=== PATIENT | female | born 1955 | race Caucasian/White ===

== ENCOUNTER 2018-03-18 22:00 | Emergency (ER) | payer OTHER, SELFPAY ==
[2018-03-18 22:03] VITALS: BP 141/83; PULSE 81; RESP 16; TEMP 36.8; O2SAT 95; BMI 39.4
--- NOTE | 2018-03-18 22:41 | RAD_ITS ---
STUDY: X-RAY - LEFT ANKLE REASON FOR EXAM: Female, 62 years old. Status post fall. Pain and swelling of the medial aspect of the ankle. TECHNIQUE: 3 view(s) of the ankle. COMPARISON: None. FINDINGS: Normal visualized distal tibia and fibula. Normal medial and lateral malleoli. Normal tibiotalar articulation and ankle mortise. There is an enthesophyte formation in the posterior calcaneus near the insertion of the Achilles tendon. The visualized subtalar, talonavicular, calcaneocuboid and tarsal articulations are normal. There is no demonstrated fracture. There is soft tissue swelling. RAD/Ankle min 3 Views IMPRESSION: Soft tissue swelling. No demonstrated acute osseous injury. Electronically Signed: Francisco Wooten MD at 23:14 EDT Tel , Service support ,
[2018-03-18] MEDS: Ibuprofen 600 MG Tablet PO (22:53)
--- NOTE | 2018-03-18 23:24 | ED.DCSUM_ITS ---
- ER Visit Summary Date of Service: 03/18/18 Chief Complaint: Left ankle pain History of Present Illness: The patient is a 62 F whose had left ankle pain for the last 3 weeks with mild edema. Patient was seen by her PCP and given prednisone and anti-inflammatories. She did not have significant improvement. Tonight she jumped out of bed to answer the phone and felt a pop in her left ankle with increased pain and swelling. She is unsure if she rolled her ankle or not. She has not been able to bear weight on it since that time. Physical Examination: Vital signs unremarkable. Patient sitting upright in bed no acute distress. Lower extremity examination significant for edema the left ankle, medial greater than lateral. She does have tenderness over the medial ankle. She has strong distal pulses. There is no tenderness over the foot itself. There is no tenderness of the proximal fibula. Test Results: Left ankle x-rays reveal soft tissue swelling with no acute osseous injury. Emergency Department Course and Treatment: Patient was only have ibuprofen for pain. Air stirrup splint will be placed. Patient has walker and wheelchair at home that she can use as needed. Treatment Plan: [] Disposition: Discharge Impression: Left ankle sprain This note was generated with [employer] dictation software. It may contain incorrect words, spelling, and punctuation that were not noted in review of the chart prior to signing ED Disposition - Plan for ED Patient: Chief Complaint: Lower Extremity Injury Referrals: Jake Carter MD [Primary Care Provider] -
--- NOTE | 2018-03-18 23:24 | ED.DEP ---
ED Disposition - Plan for ED Patient: Disposition: Home or Assisted Living Chief Complaint: Lower Extremity Injury Instructions: ED Sprain Ankle W X Ray Referrals: Jake Carter MD [Primary Care Provider] - 1 Week if not improving
[2018-03-19 00:11] VITALS: RESP 18
== END 2018-03-19 00:11 | disposition home or self-care (01) ==
PROVIDERS: Emergency Provider Emergency Medicine; Family Provider Family Medicine; PCP Family Medicine
DX: S93.402A Sprain of unspecified ligament of left ankle, initial encounter (principal); X58.XXXA Exposure to other specified factors, initial encounter; Y93.9 Activity, unspecified; Y92.9 Unspecified place or not applicable; Y99.9 Unspecified external cause status; J45.909 Unspecified asthma, uncomplicated; K21.9 Gastro-esophageal reflux disease without esophagitis; Z79.899 Other long term (current) drug therapy
CPT/HCPCS: 73610; 99283

== ENCOUNTER 2018-06-17 09:30 | Outpatient (RCR) | payer OTHER, SELFPAY ==
--- NOTE | 2018-05-15 17:06 | HP.PTEVAL_ITS ---
Patient's Visit Information CARMEN CUENCA is a 62 year old F referred to Physical Therapy by Raji Herrera with a diagnosis of L ankle pain, pes planus, deltoid sprain, pot-tib dysfxn. Date of Evaluation: 05/15/18 Physical Therapist: Juju Garcia - Visit Plan Frequency: 2x /Week Duration: 4 Weeks Plan: Pt has a latex allergy. 2X/ weekf or 4 weeks for L ankle AROM,stretching, strengthening, gait tainin, balance, with HEP and modlaities PRN - Subjective Subjective: Pt reports that around March 21, 2018 she stepped over a pile of toys and had pain in her L foot and had heard a pop. She went to ER and they x- ray and put her in a boot. She was seeing Dr Carter and it was not getting any better with time or Prednizone. She was then sent to Dr Tesfaye and he said that she needed PT. She asked for an MRI but he wanted PT first. She has 7/10 pain in sitting and 9/10 pain with standing activities. She reports that the medial side of her foot is what hurts. She reports that the pain does wake her up at night when she moves around without the boot on. She reports that she gets some tingling in her toes att imes. She is frustrated as she does not feel it is any better. - Pain L foot pain Pain Intensity (Out of 10): 7 Pain Intensity Range: 9 Comment: with movment - Objective L ankle AROM: DF - 3 degrees from DF and 19 degrees PF, 10 degrees INV and 3 degrees EV. Palpation: pt is tender along the post tib tendon and at the insertion point on the L. Pt has increase pain moving her foot in all 4 planes of movement. Pt is not able to walk with a normal gait and she is not able to put full weight on her L foot when transfering from a chair to a mat table with out the boot. - Goals Goal 1:: I HEP Goal Time Frame: 4-6 Weeks Goal 2:: Increase L ankle AROM to 9 degrees DF and 30 degrees PF to increase ability to do ADL's Goal Time Frame: 4-6 Weeks Goal 3:: Be able to walk without the boot without pain Goal Time Frame: 6-8 Weeks - Rehabilitation Potential Rehabilitation Potential: Good - Anticipated Interventions Patient/Client Instruction: Educate patient on: Condition, Plan of Care For the Purpose of:: To decrease pain, To decrease swelling/inflammation, To increase ROM, To improve nutrient delivery to tissue, To improve muscle performance and motor function, To improve ability to perform ADL's, To increase tolerance to activity/condition/position, To improve performance and indep endence with ADL's, To improve ability of physical actions for home/community/work/leisure, To improve gait and locomotor functions, To improve health of tissue, To decrease soft tissue restriction, To increase flexibility/ROM, To improve balance Therapeutic Exercise to Include: Strength training, Balance training, Flexibilty training, Gait and locomotor training, Passive ROM, Active ROM For the Purpose of:: To decrease pain, To decrease swelling/inflammation, To increase ROM, To improve nutrient delivery to tissue, To improve muscle performance and motor function, To improve ability to perform ADL's, To increase tolerance to activity/condition/position, To improve performance and independence with ADL's, To improve ability of physical actions for home/community/work/leisure, To improve gait and locomotor functions, To improve health of tissue, To improve balance Manual Therapy Techniques to Include: Passive ROM, Soft tissue mobilization For the Purpose of:: To decrease pain, To decrease swelling/inflammation, To increase ROM, To improve nutrient delivery to tissue, To improve ability to perform ADL's, To increase tolerance to activity/condition/position IF ES: Yes Cryotherapy (ice pack, ice massage): Yes Thermo therapy (hot pack): Yes Ultrasound (thermal/non thermal): Yes For the Purpose of:: To decrease pain, To decrease swelling/inflammation, To increase ROM, To improve nutrient delivery to tissue, To improve muscle performance and motor function, To improve health of tissue Thank you for the opportunity to evaluate your patient. For Medicare and Medicare HMO plans, please review the plan of care and approve it. It will need to be FAXED BACK to us at [phone] for Medicare purposes. Please let me know if there are questions or concerns regarding this plan of care. Physician Signature: Date:
--- NOTE | 2018-06-17 10:04 | HP.PTDCSUM ---
HP - PT D/C Summary It has been my pleasure to treat CARMEN CUENCA under orders from Raji Herrera, for the diagnosis of L ankle pain, pes planus, deltoid sprain, pot-tib dysfxn for a total of 7 visit(s). Discharge Date: 06/17/18 Please see the following information for a summary of their discharge status. - Subjective Subjective: Pt reports that PT is not working and that her foot is cramping up so much all the time. She is still walking with a limp. Her L foot is keeping her up at night with the cramping which is not new. Cramping starts on the fron t of the rios and then grabbing at the back of her heel and all around the ankle. They have never done an MRI. She went shopping the other day and she was grabbing onto things in the store it hurt so bad. Pt will call Dr Tesfaye to get back in and ask again for an MRI, - Pain L foot pain Pain Intensity (Out of 10): 6 - Overall Improvement % Improvement: 0 - Objective Objective/Function: L Ankle AROM: 5 degrees DF 38 degrees PF. Gait: walks with decreased stance time on the L. - Goals Goal 1:: I HEP Goal Progress: Goal Met Goal 2:: Increase L ankle AROM to 9 degrees DF and 30 degrees PF to increase ability to do ADL's Goal Progress: Progressing Goal 3:: Be able to walk without the boot without pain Goal Progress: Not Progressing - Plan Plan: DC PT back to physician. Possible MRI - D/C Information Discharge Comments: DC PT to HEP If there are questions or concerns regarding this patient's physical therapy, please feel free to call me at [phone]. Thank you for the referral of this patient. Sincerely, Juju Garcia
== END 2018-06-17 19:00 | disposition home or self-care (01) ==
LOC: PT 09:30
PROVIDERS: Family Provider Family Medicine; PCP Family Medicine; Referring Provider Family Medicine; Visit Provider Family Medicine
DX: M25.572 Pain in left ankle and joints of left foot (principal); M21.42 Flat foot [pes planus] (acquired), left foot; S93.422D Sprain of deltoid ligament of left ankle, subsequent encounter
CPT/HCPCS: 97035; 97110; 97161; 97530

== ENCOUNTER → 2018-06-28 09:31 | Outpatient (CLI) | payer OTHER, SELFPAY ==
--- NOTE | 2018-06-28 10:00 | MRI_ITS ---
STUDY: MRI LEFT ANKLE WITHOUT CONTRAST REASON FOR EXAM: Female, 62 years old. Medial left ankle pain after injury in March 2018. TECHNIQUE: Standardized fat and water weighted pulse sequences were obtained in all 3 orthogonal planes. COMPARISON: Radiograph's of the left ankle dated March 18, 2018. FINDINGS: Normal subcutis adipose space. There is posterior tibialis tendinosis with tenosynovitis. There is a type II accessory navicular (os tibiale externum) (axial series 3 images 12-24). Normal flexor digitorum longus tendon. Normal flexor hallucis longus tendon. Normal peroneus longus and brevis tendons. Normal tibialis anterior tendon. Normal extensor hallucis longus tendon. Normal extensor digitorum longus tendons. Normal Achilles tendon and teno-osseous insertion. Normal plantar fascia. Normal plantar calcaneal tubercles. Normal intrinsic muscles of the rearfoot. Normal distal tibiofibular syndesmotic ligamentous complex. Normal lateral ligamentous complex. Normal subtalar ligaments and sinus tarsi. Normal deltoid ligamentous complexes. Normal plantar calcaneonavicular (spring) ligament. There is mild arthrosis of the tibiotalar joint (sagittal series 7 images 8-13). There is moderate to severe arthrosis of the subtalar joint with substantial bone marrow edema in the talus (sagittal series 7 images 9-15). There is severe arthrosis of the calcaneocuboid joint with reactive subchondral bone marrow edema and subchondral cyst formation (sagittal series 7 images 11-18). 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 Electronically Signed: Renny Marcus MD at 16:36 EST , Service support ,
== END ==
PROVIDERS: Family Provider Family Medicine; PCP Family Medicine; Referring Provider Family Medicine; Visit Provider Family Medicine
DX: M76.822 Posterior tibial tendinitis, left leg (principal)
CPT/HCPCS: 73721

== ENCOUNTER → 2019-02-18 13:16 | Outpatient (CLI) | payer MEDICARE, SELFPAY ==
[2019-02-18 15:36] LABS: T4 Free Direct 1.09 ng/dL (0.76-1.46); Thyroid Stim Hormone (TSH) 0.77 uIU/mL (0.358-3.74)
== END ==
PROVIDERS: Family Provider Family Medicine; PCP Family Medicine; Referring Provider Family Medicine; Visit Provider Family Medicine
DX: E03.9 Hypothyroidism, unspecified (principal)
CPT/HCPCS: 36415; 84439; 84443

== ENCOUNTER → 2019-03-26 06:41 | Outpatient (CLI) | payer MEDICARE, SELFPAY ==
[2019-03-26 07:29] LABS: Absolute Lymphocyte Count 1.27 X10^3/uL (0.83-4.51); Absolute Neutrophil Count 4.6 X10^3/uL (2.0-7.7); Basophil# 0.05 X10^3/uL; Basophil% 0.7 % (0-1); Eosinophil# 0.34 X10^3/uL; Eosinophils% 4.9 % (0-5); Hematocrit 47.1 % (37-47); Lymphocyte # 1.27 X10^3/ul (4.0); Lymphocyte % 18.4 % (19-41); Mean Corp Hgb Conc 31.8 g/dL (32-36); Mean Corpuscular Hgb 26.2 pg (27.0-32.0); Mean Corpuscular Volume 82.2 fL (81-99); Mean Platelet Vol. 10.9 fl (6.2-12.0); Monocyte# 0.61 X10^3/uL; Monocyte% 8.8 % (0-10); NRBC Flagged by Analyzer 0 % (0-5); Neutrophil # 4.59 X10^3/uL (2.7-7.7); Neutrophil % 66.6 % (47-70); Platelet Count 212 K/mm3 (150-450); RBC Distribution Width CV 13.8 % (11.6-14.6); RBC Distribution Width SD 40.8 fl (35.1-43.9); Red Blood Count 5.73 M/mm3 (4.2-5.4); White Blood Count 6.9 K/mm3 (4.4-11.0)
[2019-03-26 08:16] LABS: ALB/GLOB Ratio 0.9 RATIO (0.9-2.4); AST(SGOT) 20 U/L (15-37); Alanine Aminotransfer ALT/SGPT 24 U/L (13-56); Albumin, Serum 3.5 g/dL (3.2-5.0); Alkaline Phosphatase 95 U/L (45-117); Anion Gap 9 (5-15); BUN 18 mg/dL (7-18); BUN/Creat Ratio 18.3 RATIO (10-20); Calcium,Total 8.6 mg/dL (8.5-10.1); Chloride 107 mmol/L (98-107); Cholesterol 160 mg/dL (200); Creatinine, Serum 0.98 mg/dL (0.55-1.02); EST Glomerular Filtration Rate 60 mL/min (>60); Est Glom Filt Rate - Afr Amer 73 mL/min (>60); Globulin 3.7 g/dL (2.2-4.2); Glucose 91 mg/dL (74-106); High Density Lipoprotein 44 mg/dL; Potassium 4.2 mmol/L (3.5-5.1); Protein, Total 7.2 g/dL (6.4-8.2); Sodium Level 142 mmol/L (136-145); Thyroid Stim Hormone (TSH) 0.33 uIU/mL (0.358-3.74); Triglycerides 140 mg/dL; Very Low Density Lipoprotein 28 mg/dL (5-40)
--- NOTE | 2019-03-27 15:46 | STRESSREP_ITS ---
Stress Test Report Date: March 26, 2019 Procedure: Pharmacologic stress nuclear imaging study Indications: [Abnormal EKG] Consent: Per the patient Procedure: The patient underwent pharmacologic (Regadenoson) evaluation with a peak heart rate of 88 beats per minute (56 %predicted maximal heart rate) and a peak blood pressure of 150/90 mmHg. The baseline ECG demonstrated normal sinus rhythm, poor R wave progression in the anterior leads. EKG during lexiscan infusion revealed no significant change from baseline. EKG post infusion revealed no significant change from baseline [There were no cardiac dysrhythmias pretest, during pharmacologic infusion, or recovery]. [There was no complaint of chest discomfort during pharmacologic infusion or recovery]. The examination was discontinued secondary to completion of protocol. Impression: 1. Lexiscan stress test test is negative for Lexiscan infusion induced EKG changes of ischemia. 2. Lexiscan stress test test is negative for Lexiscan infusion induced chest pain. 3. Results of the nuclear portion of the test is as below Myocardial perfusion imaging study: Technique: The patient was injected with 14.4 millicuries of technetium 99m Cardiolite and subsequently rest SPECT Cardiolite nuclear imaging was obtained in the horizontal long, vertical long, and short axis views. The patient underwent pharmacologic (Regadenoson) evaluation. Please see above for details. The patient was injected with 44.7 millicuries of technetium 99m Cardiolite and subsequently stress SPECT Cardiolite nuclear imaging was obtained in the horizontal long, vertical long, and short axis views. A gated Cardiolite study at peak stress was obtained. Interpretation: Rest and stress SPECT Cardiolite nuclear imaging status post realignment, normalization, and attenuation correction demonstrate mild to moderately decreased radioisotope uptake in the apex on both the rest and stress images. Gated images reveal mild apical hypokinesis. The reported LVEF is [62]%. These findings are suggestive of prior apical myocardial infarction. There is no evidence of significant ischemia Impression: 1. There is no evidence of significant ischemia. Possible prior apical myocardial infarction 2. Estimated ejection fraction is 62%. This note was generated with [employer] software. It may contain incorrect words, spelling, and punctuation that were not noted in checking the note before signing.
== END ==
PROVIDERS: Family Provider Family Medicine; PCP Family Medicine; Referring Provider Family Medicine; Visit Provider Family Medicine
DX: Z00.00 Encounter for general adult medical examination without abnormal findings (principal); K52.81 Eosinophilic gastritis or gastroenteritis; R94.31 Abnormal electrocardiogram [ECG] [EKG]
CPT/HCPCS: 36415; 78452; 80053; 80061; 84443; 85025; 93017; A9500; A4216; J2785

== ENCOUNTER → 2019-08-25 11:10 | Outpatient (CLI) | payer MEDICARE, SELFPAY ==
[2019-08-25 13:01] LABS: Absolute Lymphocyte Count 1.21 X10^3/uL (0.83-4.51); Absolute Neutrophil Count 5.6 X10^3/uL (2.0-7.7); Basophil# 0.07 X10^3/uL; Basophil% 0.9 % (0-1); Eosinophil# 0.44 X10^3/uL; Eosinophils% 5.5 % (0-5); Hematocrit 47.6 % (37-47); Hemoglobin 14.6 g/dL (12.0-15.0); Lymphocyte # 1.21 X10^3/ul (4.0); Lymphocyte % 15.1 % (19-41); Mean Corp Hgb Conc 30.7 g/dL (32-36); Mean Corpuscular Hgb 25.3 pg (27.0-32.0); Mean Corpuscular Volume 82.6 fL (81-99); Mean Platelet Vol. 11.1 fl (6.2-12.0); Monocyte# 0.61 X10^3/uL; Monocyte% 7.6 % (0-10); NRBC Flagged by Analyzer 0 % (0-5); Neutrophil # 5.62 X10^3/uL (2.7-7.7); Neutrophil % 70.3 % (47-70); Platelet Count 242 K/mm3 (150-450); RBC Distribution Width CV 14.1 % (11.6-14.6); RBC Distribution Width SD 42.2 fl (35.1-43.9); Red Blood Count 5.76 M/mm3 (4.2-5.4)
[2019-08-25 13:23] LABS: Vitamin D,25 Hydroxy 19.2 ng/mL (29.95-100.01)
[2019-08-25 13:38] LABS: AST(SGOT) 25 U/L (15-37); Alanine Aminotransfer ALT/SGPT 31 U/L (13-56); Albumin, Serum 3.8 g/dL (3.2-5.0); Alkaline Phosphatase 99 U/L (45-117); Anion Gap 7 (5-15); BUN 18 mg/dL (7-18); BUN/Creat Ratio 19.1 RATIO (10-20); Chloride 105 mmol/L (98-107); Cholesterol 197 mg/dL (200); Creatinine, Serum 0.94 mg/dL (0.55-1.02); EST Glomerular Filtration Rate 63 mL/min (>60); Est Glom Filt Rate - Afr Amer 77 mL/min (>60); Ferritin 133 ng/mL (8-252); Globulin 3.7 g/dL (2.2-4.2); Glucose 75 mg/dL (74-106); High Density Lipoprotein 59 mg/dL; Magnesium 2.2 mg/dL (1.6-2.6); Potassium 4.3 mmol/L (3.5-5.1); Protein, Total 7.5 g/dL (6.4-8.2); Sodium Level 139 mmol/L (136-145); Thyroid Stim Hormone (TSH) 0.36 uIU/mL (0.358-3.74); Triglycerides 84 mg/dL; Very Low Density Lipoprotein 17 mg/dL (5-40)
[2019-08-25 14:42] LABS: Microalbumin,Random Urine 6.4 mg/L (NO RANGE EST.); Microalbumin:Creatinine Ratio 6.8 mg/g CRE (<30 mg/g CRE)
== END ==
PROVIDERS: Family Provider Family Medicine; PCP Family Medicine; Referring Provider Family Medicine; Visit Provider Family Medicine
DX: I10 Essential (primary) hypertension (principal); E03.9 Hypothyroidism, unspecified; E88.81 Metabolic syndrome and other insulin resistance; G47.62 Sleep related leg cramps; E55.9 Vitamin D deficiency, unspecified
CPT/HCPCS: 36415; 80053; 80061; 82043; 82306; 82570; 82728; 83735; 84443; 85025

== ENCOUNTER → 2020-03-18 08:41 | Outpatient (CLI) | payer MEDICARE, SELFPAY ==
--- NOTE | 2020-03-18 08:42 | RAD_ITS ---
STUDY: X-RAY - ESOPHAGUS (BARIUM SWALLOW) WITH FLUOROSCOPY REASON FOR EXAM: Female, 64 years old. CHOKING X YEARS ON BOTH FOODS AND LIQUIDS, COLDER THE SUBSTANCE THE WORSE, PREV DILATATION TECHNIQUE: 13 view(s) of the esophagus were obtained following swallowing of barium. FLUOROSCOPY TIME (if supplied): (0:35) minutes/seconds COMPARISON: None. FINDINGS: There is no demonstrated esophageal foreign body. There is no demonstrated stricture or mucosal abnormality. Mild circumferential narrowing of the distal esophagus at the gastroesophageal junction. The patient ingested a 12 mm tablet of barium. The tablet is trapped at the gastroesophageal junction. There is atherosclerotic tortuosity of the aortic arch and descending thoracic aorta. Normal visualized pulmonary parenchyma. Normal visualized osseous structures of the thorax. RAD/Esophagus Dual Contrast IMPRESSION: Circumferential narrowing of the distal esophagus at the gastroesophageal junction. The 12 mm tablet of barium is trapped at the gastroesophageal junction. Electronically Signed: Natalio Edouard, at 10:51 EDT , Service support ,
== END ==
PROVIDERS: PCP Family Medicine; Referring Provider Internal Medicine Gastroenterology; Visit Provider Internal Medicine Gastroenterology
DX: R13.10 Dysphagia, unspecified (principal)
CPT/HCPCS: 74221

== ENCOUNTER → 2020-03-31 10:17 | Outpatient (CLI) | payer MEDICARE, SELFPAY | PROVIDERS: PCP Family Medicine; Referring Provider Internal Medicine Gastroenterology; Visit Provider Internal Medicine Gastroenterology | DX: Z11.59 Encounter for screening for other viral diseases (principal) | CPT/HCPCS: 87635; 94799; C9803; U0003 ==

== ENCOUNTER → 2020-04-06 15:34 | Outpatient (CLI) | payer MEDICARE, SELFPAY ==
--- NOTE | 2020-04-06 15:36 | BI_ITS ---
MAMMOGRAPHY - BILATERAL SCREENING REASON FOR EXAM: Female, 64 years old. Routine annual screening examination. PERTINENT HISTORY: Non-contributory. TECHNIQUE: Digital bilateral breast rosita (3D mammographic acquisition) in the CC and MLO projections. 2-D mediolateral oblique (MLO) and craniocaudad (CC) views of both breasts were obtained. CAD: Full Field Digital Mammography with Computer Added Detection was performed. COMPARISON: Comparison is made with prior study dated 05/18/2016 and 12/25/2014. FINDINGS: Breast Composition: There are scattered areas of fibroglandular density. There are no dominant masses or suspicious calcifications. Stable small benign-appearing bilateral axillary lymph nodes. No other significant abnormalities are identified. There has been no significant change since the prior study. BI/SCREEN MAMM (CAD) W/ROSITA BILAT IMPRESSION: Stable bilateral screening mammogram. Yearly follow-up mammogram recommended. (A) ASSESSMENT CATEGORY: BIRADS Category 1: Negative. A letter regarding these results will be sent to the patient by the facility within 30 days. Approximately 10% of breast cancers are not detected by mammography. A normal mammogram should not delay biopsy of a clinically suspicious abnormality. [id number] Electronically Signed: Natalio Edouard, at 8:17 EDT , Service support ,
--- NOTE | 2020-04-06 15:42 | BD_ITS ---
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 COMPARISON: None. FINDINGS: Lumbar Spine (L1-L4): g/cm2 (1.102) / T-score (-0.6) / Z-score (1.0) Findings are suggestive of normal bone density with a low fracture risk. Left Femur Total: g/cm2 (0.806) / T-score (-1.6) / Z-score (-0.3) Left Femoral Neck: g/cm2 (0.687) / T-score (-2.5) / Z-score (-1.0) Right Femur Total: g/cm2 (0.960) / T-score (-0.4) / Z-score (0.9) Right Femoral Neck: g/cm2 (0.741) / T-score (-2.1) / Z-score (-0.6) Right Forearm: g/cm2 ( ) / T-score ( ) / Z-score ( ) Left Forearm: g/cm2 ( ) / T-score ( ) / Z-score ( ) BD/Dexa Bone Density Study IMPRESSION: The patient is considered osteopenic as outlined below according to World Josh Organization (WHO) criteria with a high fracture risk. Reference Information: The T-score is the number of standard deviations above or below the standard which is normal for young adults at their peak bone mineral density. The World Health Organization (WHO) interprets the T-scores as follows: Above -1 Normal bone density Between -1 and -2.5 Osteopenia Equal to / or below -2.5 Osteoporosis As a practical clinical guideline, osteopenia may be graded as follows: Mild -1 through -1.5 Moderate -1.6 through -2.0 Severe -2.1 through -2.4 The Z-score is the number of standard deviations above or below age-matched controls. A Z-score of less than -1.5 would be considered abnormal. References: 1. NIH Osteoporosis and Related Bone Diseases http://www.osteo.org 2. International Society for Clinical Densitometry http://www.iscd.org 3. National Osteoporosis Foundation http://www.nof.org Electronically Signed: Natalio Edouard, at 13:09 EDT , Service support ,
== END ==
PROVIDERS: PCP Family Medicine; Referring Provider Family Medicine; Visit Provider Family Medicine
DX: Z12.31 Encounter for screening mammogram for malignant neoplasm of breast (principal); M85.80 Other specified disorders of bone density and structure, unspecified site; Z78.0 Asymptomatic menopausal state
CPT/HCPCS: 77063; 77067; 77080

== ENCOUNTER → 2020-08-18 15:21 | Outpatient (CLI) | payer MEDICARE, SELFPAY ==
--- NOTE | 2020-08-18 15:26 | RAD_ITS ---
STUDY: X-RAY CHEST REASON FOR EXAM: Female, 64 years old. sob off and on, getting worse TECHNIQUE: Frontal and lateral views COMPARISON: 11/11/2010 FINDINGS: The lungs are clear and expanded. There is no demonstrated pleural abnormality. Normal size heart. Normal mediastinum and nubia. Normal visualized pulmonary arteries. Normal visualized aortic arch and descending thoracic aorta. Normal visualized thoracic spine. Normal visualized ribs, clavicles, and shoulders. There is no demonstrated abnormality of the visualized soft tissue structures of the upper abdomen. RAD/Chest PA and Lateral IMPRESSION: Normal x-ray examination of the chest. Electronically Signed: Jordan Best DO at 16:04 EST Tel [phone], Service support ,
[2020-08-18 17:49] LABS: Absolute Lymphocyte Count 1.17 X10^3/uL (0.83-4.51); Absolute Neutrophil Count 4.7 X10^3/uL (2.0-7.7); Basophil# 0.05 X10^3/uL; Basophil% 0.7 % (0-1); Eosinophil# 0.45 X10^3/uL; Eosinophils% 6.5 % (0-5); Hematocrit 49.2 % (37-47); Hemoglobin 14.8 g/dL (12.0-15.0); Lymphocyte # 1.17 X10^3/ul (4.0); Lymphocyte % 16.8 % (19-41); Mean Corp Hgb Conc 30.1 g/dL (32-36); Mean Corpuscular Hgb 24.7 pg (27.0-32.0); Mean Corpuscular Volume 82.3 fL (81-99); Mean Platelet Vol. 11.3 fl (6.2-12.0); Monocyte# 0.58 X10^3/uL; Monocyte% 8.3 % (0-10); NRBC Flagged by Analyzer 0 % (0-5); Neutrophil # 4.68 X10^3/uL (2.7-7.7); Neutrophil % 67.3 % (47-70); Platelet Count 274 K/mm3 (150-450); RBC Distribution Width CV 13.5 % (11.6-14.6); RBC Distribution Width SD 40.5 fl (35.1-43.9); Red Blood Count 5.98 M/mm3 (4.2-5.4)
[2020-08-18 18:03] LABS: Vitamin D,25 Hydroxy 15.5 ng/mL
[2020-08-18 18:44] LABS: AST(SGOT) 50 U/L (15-37); Alanine Aminotransfer ALT/SGPT 64 U/L (13-56); Albumin, Serum 3.8 g/dL (3.2-5.0); Alkaline Phosphatase 111 U/L (45-117); Anion Gap 7 (5-15); BUN 17 mg/dL (7-18); BUN/Creat Ratio 16.7 RATIO (10-20); CRP, High Sensitivity Cardiac 7.33 mg/L; Calcium,Total 9.2 mg/dL (8.5-10.1); Chloride 102 mmol/L (98-107); Creatinine, Serum 1.02 mg/dL (0.55-1.02); EST Glomerular Filtration Rate 58 mL/min (>60); Est Glom Filt Rate - Afr Amer 70 mL/min (>60); Globulin 3.9 g/dL (2.2-4.2); Glucose 89 mg/dL (74-106); Magnesium 2.3 mg/dL (1.6-2.6); Potassium 3.8 mmol/L (3.5-5.1); Prolactin 5.5 ng/mL; Protein, Total 7.7 g/dL (6.4-8.2); Sodium Level 138 mmol/L (136-145); Thyroid Stim Hormone (TSH) 0.12 uIU/mL (0.358-3.74)
[2020-08-18 18:54] LABS: BNP,B-Type NATRIURETIC PEPTIDE 17.2 pg/mL (0-100)
[2020-08-19 09:12] LABS: PTHIN 48.1 pg/mL (18.4-80.1)
[2020-08-23 14:09] LABS: PROEL- A/G Ratio 1.1 (0.7-1.7); PROEL- Albumin 3.6 g/dL (2.9-4.4); PROEL- Alpha-1 Globulin 0.3 g/dL (0.0-0.4); PROEL- Alpha-2 Globulin 0.8 g/dL (0.4-1.0); PROEL- Beta Globulin 1.1 g/dL (0.7-1.3); PROEL- Gamma Globulin 1.1 g/dL (0.4-1.8); PROEL- Globulin, Total 3.3 g/dL (2.2-3.9); PROEL- TOTAL PROTEIN 6.9 g/dL (6.0-8.5); PROELU- Albumin, Urine 26.7 % (.); PROELU- Alpha-1-Globulin,Ur 1.8 % (.); PROELU- Alpha-2-Globulin,Ur 18.5 % (.); PROELU- Beta Globulin, Ur 29.8 % (.); PROELU- Gamma Globulin, Ur 23.2 % (.); Total Protein, Ur 6.4 mg/dL (Not Estab.)
== END ==
LOC: MTLAB 15:24 → MTRAD 15:25
PROVIDERS: PCP Family Medicine; Referring Provider Family Medicine; Visit Provider Family Medicine
DX: R06.02 Shortness of breath (principal); E88.81 Metabolic syndrome and other insulin resistance; E55.9 Vitamin D deficiency, unspecified; M81.0 Age-related osteoporosis without current pathological fracture; E03.9 Hypothyroidism, unspecified; J32.9 Chronic sinusitis, unspecified; H53.2 Diplopia
CPT/HCPCS: 36415; 71046; 80053; 82306; 83735; 83880; 83970; 84146; 84165; 84166; 84443; 85025; 86141

== ENCOUNTER → 2020-08-19 13:09 | Outpatient (CLI) | payer MEDICARE, SELFPAY ==
[2020-08-19] MEDS: 0.9% NaCl Peripheral Flush Adult/Peds IV (13:34)
[2020-08-19] MEDS: 0.9% NaCl IVPB Med Flush (250 mL) 15 ML IV (13:34)
[2020-08-19] MEDS: Zoledronic Acid 5 MG 100 ML 300 MG IV (13:36)
[2020-08-19 13:40] VITALS: BP 156/81; PULSE 79; RESP 16; TEMP 36.8; O2SAT 97; BMI 38.5
[2020-08-19 14:11] VITALS: BP 148/67
[2020-08-19 18:29] LABS: Erythrocyte Sedimentation Rate 18 mm/hr (0-30)
== END ==
PROVIDERS: Ophthalmology; PCP Family Medicine; Referring Provider Family Medicine; Visit Provider Family Medicine
DX: M81.0 Age-related osteoporosis without current pathological fracture (principal); R51.9 Headache, unspecified
CPT/HCPCS: 96365; 36415; 85652; J7050; A4216; J3489

== ENCOUNTER → 2020-09-07 09:15 | Outpatient (CLI) | payer MEDICARE, SELFPAY ==
[2020-09-06 09:40] VITALS: BMI 40.0
--- NOTE | 2020-09-08 09:13 | PFT ---
INTRODUCTION: The patient is a 64-year-old female that presents for pulmonary function studies secondary to a diagnosis of shortness of breath. Respiratory therapy reports good patient effort. Bronchodilators were used during testing. INTERPRETATION: Forced expiration spirometry demonstrates no evidence of a large airways obstructive ventilatory defect. There was no significant response to aerosolized bronchodilators. Spirograms are of good quality and plateau normally. The respiratory flow volume loop appears normal. Body plethysmography was performed and reveals lung volumes to be within normal limits. Diffusing capacity by single breath CO is reduced at 69% of predicted. When compared to previous pulmonary function studies from 2017, there has been a 14% reduction in DLCO. IMPRESSION: Isolated reduction in diffusing capacity with interval worsening since 2017.
== END ==
PROVIDERS: PCP Family Medicine; Referring Provider Internal Medicine Critical Care Medicine; Visit Provider Internal Medicine Critical Care Medicine
DX: R06.02 Shortness of breath (principal)
CPT/HCPCS: 94060; 94726; 94729

== ENCOUNTER → 2020-09-09 07:18 | Outpatient (CLI) | payer MEDICARE, SELFPAY ==
[2020-09-06 09:40] VITALS: BMI 40.0
--- NOTE | 2020-09-09 07:22 | ECHOCS_ITS ---
Reason For Study: SOB Procedure This was a 2D Doppler, Color Flow transthoracic echocardiogram. The study was technically difficult. Exam performed in department. Left Ventricle Normal LV size. The estimated ejection fraction is 55 %. No evidence for diastolic dysfunction. No regional wall motion abnormalities noted. Right Ventricle Normal RV size. Normal systolic function. Atria Normal left atrium. Normal right atrium. No doppler evidence for ASD. Mitral Valve There is no mitral valve stenosis. No mitral valve insufficiency. Tricuspid Valve There is no tricuspid stenosis. No tricuspid valve insufficiency. Unable to estimate RV systolic pressure due to inadequate jet, pulmonary artery pressure probably normal. Aortic Valve Trisinus/trileaflet aortic valve. There is no aortic stenosis. Trivial aortic valve insufficiency. Pulmonic Valve There is no pulmonic valvular stenosis. No pulmonic valve insufficiency. Great Vessels Normal aortic root. Pericardium/Pleural No pericardial effusion. Medication Diluted definity 1ml given slow IV push to enhance endocardial definition. MMode/2D Measurements & Calculations LVIDd: 4.5 cm IVSd: 1.2 cm Ao root diam: 3.2 cm LVIDs: 3.0 cm LVPWd: 0.89 cm RVDd: 2.5 cm FS: 32.2 % LAV(MOD-bp): 29.2 ml LA A4 area: 12.9 cm2 LA dimension(2D): 4.3 cm LAV(MOD-bp) Indexed: 13.7 ml/m2 LAV(MOD-sp2): 29.3 ml LAV(MOD-sp4): 28.7 ml RA A4 area: 9.8 cm2 Doppler Measurements & Calculations MV E max sotero: 45.0 cm/sec Lat Peak E' Sotero: 5.5 cm/sec Med Peak E' Sotero: 4.1 cm/sec MV A max sotero: 82.4 cm/sec E/E' lat: 8.2 E/E' med: 11.0 MV E/A: 0.55 Ao V2 max: 142.5 cm/sec AI max sotero: 428.8 cm/sec LV V1 max: 104.3 cm/sec Ao max P.1 mmHg AI max P.6 mmHg LV V1 max P.4 mmHg AI dec slope: 254.1 cm/sec2 AI P1/2t: 494.3 msec PA V2 max: 117.5 cm/sec Interpretation Summary The estimated ejection fraction is 55 %. No evidence for diastolic dysfunction. Trivial aortic valve insufficiency. The study was technically difficult. Contrast injection was performed. Ordering Physician: Yonatan Solano Referring Physician: Jake Carter MD Performed By: Nayely Cox RDCS
[2020-09-09 10:30] VITALS: PULSE 101; PULSE 103; PULSE 104; PULSE 106; PULSE 107; PULSE 110; PULSE 84; PULSE 98; O2SAT 96; O2SAT 97; O2SAT 98; O2SAT 99
--- NOTE | 2020-09-09 12:46 | PCM.PSN.6M ---
PSN 6 Minute Walk Test - 6 Minute Walk Test 6 Minute Walk Test: 6 Minute Walk Test PSN:6-Minute Walk Test Start: 09/09/20 10:53 Freq: Status: Active Protocol: RESP.6MINW Document 09/09/20 10:30 HJ (Rec: 09/09/20 10:56 [id number]) 6 Minute Walk Test Date Performed 09/09/20 Time Performed 10:30 Height 5 ft 4 in Weight: 239 lb Weight in Pounds 239.[address]: Dr. Carter FIO2 (% Oxygen) 21 Assistive device used: None Pre-test Oxygen Delivery Method Room Air Pulse Ox (%) 98 Pulse Rate (60-100 beats/min) 84 Dyspnea Fernando Scale (0-10) 0 Exertion Fernando Scale (6-20) 6 1st minute Oxygen Delivery Method Room Air Pulse Ox (%) 97 Pulse Rate (60-100 beats/min) 103 H 2nd minute Oxygen Delivery Method Room Air Pulse Ox (%) 96 Pulse Rate (60-100 beats/min) 107 H 3rd minute Oxygen Delivery Method Room Air Pulse Ox (%) 97 Pulse Rate (60-100 beats/min) 106 H 4th minute Oxygen Delivery Method Room Air Pulse Ox (%) 98 Pulse Rate (60-100 beats/min) 101 H 5th minute Oxygen Delivery Method Room Air Pulse Ox (%) 97 Pulse Rate (60-100 beats/min) 110 H 6th minute Oxygen Delivery Method Room Air Pulse Ox (%) 99 Pulse Rate (60-100 beats/min) 104 H Post-test Oxygen Delivery Method Room Air Pulse Ox (%) 98 Pulse Rate (60-100 beats/min) 98 Dyspnea Fernando Scale (0-10) 3 Exertion Fernando Scale (6-20) 13 Full Laps Walked 17 Partial Lap, Number of Tiles Walked 0 Total Distance Walked (ft) 1003 - Interpretation Interpretation: The patient ambulated 1003 feet over the course of 6 minutes beginning on room air without assistive devices or breaks. Pretesting oxygen saturation was noted to be 98% on room air. With ambulation, the padma oxygen saturation was 96%. There was no significant exertional oxygen desaturation. - Recommendations Recommendations: There is no indication for the use of supplemental oxygen at this time.
--- NOTE | 2020-09-10 17:53 | STRESSREP_ITS ---
Stress Test Report Date: 09/09/2020 Procedure: Pharmacologic stress nuclear imaging study Indications: Shortness of breath Consent: Per the patient Procedure: The patient underwent pharmacologic (Regadenoson) evaluation with a peak heart rate of 106 beats per minute (68% predicted maximal heart rate) and a peak blood pressure of 138/90 mmHg. The baseline ECG demonstrated normal sinus rhythm. EKG during lexiscan infusion revealed no significant ischemic changes. EKG post infusion revealed [no significant ischemic changes] [There were no cardiac dysrhythmias pretest, during pharmacologic infusion, or recovery]. [There was no complaint of chest discomfort during pharmacologic infusion or recovery]. The examination was discontinued secondary to completion of protocol. Impression: 1. Lexiscan stress test test is negative for Lexiscan infusion induced EKG changes of ischemia. 2. Lexiscan stress test test is negative for Lexiscan infusion induced chest pain. 3. Results of the nuclear portion of the test is as below Myocardial perfusion imaging study: Technique: The patient was injected with [] millicuries of technetium 99m Cardiolite and subsequently rest SPECT Cardiolite nuclear imaging was obtained in the horizontal long, vertical long, and short axis views. The patient underwent pharmacologic [Regadenoson 0.4mg] evaluation. Please see above for details. The patient was injected with [] millicuries of technetium 99m Cardiolite and subsequently stress SPECT Cardiolite nuclear imaging was obtained in the hor izontal long, vertical long, and short axis views. A gated Cardiolite study at peak stress was obtained. Interpretation: Rest and stress SPECT Cardiolite nuclear imaging status post realignment, normalization, and attenuation correction demonstrate no evidence of significant ischemia or infarction. Gated images reveal no significant regional wall motion abnormalities. The reported LVEF is 59%. Impression: 1. There is no evidence of significant ischemia or infarction. 2. Estimated ejection fraction is 59%. This note was generated with [employer] software. It may contain incorrect words, spelling, and punctuation that were not noted in checking the note before signing.
== END ==
PROVIDERS: PCP Family Medicine; Visit Provider Family Medicine
DX: R07.89 Other chest pain (principal); R06.02 Shortness of breath; Z98.890 Other specified postprocedural states
CPT/HCPCS: 78452; 93017; 93306; 94618; A9500; Q9957; A4216; C8929; J2785

== ENCOUNTER → 2020-09-17 11:29 | Outpatient (CLI) | payer MEDICARE, SELFPAY ==
[2020-09-17 10:38] VITALS: BMI 40.3
[2020-09-20 12:07] LABS: Alternaria alternata <0.10 kU/L (Class 0); Bermuda Grass 0.16 kU/L (Class 0/I); Bluegrass, Kentucky <0.10 kU/L (Class 0); Cat Hair/Dander, Standard <0.10 kU/L (Class 0); D farinae Mite 3.31 kU/L (Class III); D pteronyssinus 4.16 kU/L (Class IV); Dog Epithelia <0.10 kU/L (Class 0); Elm, American White 0.25 kU/L (Class 0/I); Oak, White <0.10 kU/L (Class 0); Plantain, English <0.10 kU/L (Class 0); Ragweed, Short/Common <0.10 kU/L (Class 0)
[2020-09-20 17:02] LABS: Mouse Urine <0.10 kU/L (Class 0)
[2020-09-22 04:09] LABS: Aspirgillus flavus Negative (Neg:<1:1); Aspirgillus fumigatus Negative (Neg:<1:1); Aspirgillus niger Negative (Neg:<1:1); Cytoplasmic Ab (C-ANCA) <1:20 titer (Neg:<1:20)
[2020-09-22 12:21] LABS: Immunoglobulin E 124 IU/mL (6-495); Perinuclear Ab (P-ANCA) <1:20 titer (Neg:<1:20)
== END ==
PROVIDERS: PCP Family Medicine; Referring Provider Nurse Practitioner Acute Care; Visit Provider Nurse Practitioner Acute Care
DX: J45.909 Unspecified asthma, uncomplicated (principal)
CPT/HCPCS: 36415; 82785; 86003; 86256; 86606

== ENCOUNTER → 2020-11-02 10:50 | Outpatient (CLI) | payer MEDICARE, SELFPAY ==
[2020-10-18 11:19] VITALS: BMI 39.4
[2020-11-02 12:12] LABS: Erythrocyte Sedimentation Rate 8 mm/hr (0-30)
[2020-11-02 12:14] LABS: Absolute Lymphocyte Count 1.16 X10^3/uL (0.83-4.51); Absolute Neutrophil Count 4.2 X10^3/uL (2.0-7.7); Basophil# 0.07 X10^3/uL; Basophil% 1.1 % (0-1); Eosinophils% 1.6 % (0-5); Hemoglobin 14.5 g/dL (12.0-15.0); Lymphocyte # 1.16 X10^3/ul (4.0); Lymphocyte % 18.9 % (19-41); Mean Corp Hgb Conc 31.5 g/dL (32-36); Mean Corpuscular Hgb 26.1 pg (27.0-32.0); Mean Corpuscular Volume 82.9 fL (81-99); Mean Platelet Vol. 11.5 fl (6.2-12.0); Monocyte# 0.57 X10^3/uL; Monocyte% 9.3 % (0-10); NRBC Flagged by Analyzer 0 % (0-5); Neutrophil # 4.21 X10^3/uL (2.7-7.7); Neutrophil % 68.8 % (47-70); Platelet Count 233 K/mm3 (150-450); RBC Distribution Width CV 14.3 % (11.6-14.6); RBC Distribution Width SD 42.2 fl (35.1-43.9); Red Blood Count 5.55 M/mm3 (4.2-5.4); White Blood Count 6.1 K/mm3 (4.4-11.0)
[2020-11-02 12:44] LABS: AST(SGOT) 32 U/L (15-37); Alanine Aminotransfer ALT/SGPT 45 U/L (13-56); Albumin, Serum 3.8 g/dL (3.2-5.0); Alkaline Phosphatase 84 U/L (45-117); Anion Gap 7 (5-15); BUN 22 mg/dL (7-18); CRP 6.16 mg/L (0.0-3.0); Chloride 105 mmol/L (98-107); EST Glomerular Filtration Rate 53 mL/min (>60); Est Glom Filt Rate - Afr Amer 64 mL/min (>60); Globulin 3.8 g/dL (2.2-4.2); Glucose 80 mg/dL (74-106); Potassium 3.9 mmol/L (3.5-5.1); Protein, Total 7.6 g/dL (6.4-8.2); Sodium Level 140 mmol/L (136-145); T4 Free Direct 1.58 ng/dL (0.76-1.46); Thyroid Stim Hormone (TSH) 0.07 uIU/mL (0.358-3.74)
== END ==
PROVIDERS: PCP Family Medicine; Referring Provider Family Medicine; Visit Provider Family Medicine
DX: K52.81 Eosinophilic gastritis or gastroenteritis (principal); R76.8 Other specified abnormal immunological findings in serum; L40.8 Other psoriasis; K21.9 Gastro-esophageal reflux disease without esophagitis; J45.909 Unspecified asthma, uncomplicated; E89.0 Postprocedural hypothyroidism; I10 Essential (primary) hypertension; H54.8 Legal blindness, as defined in USA; Z85.850 Personal history of malignant neoplasm of thyroid
CPT/HCPCS: 36415; 80053; 84439; 84443; 85025; 85652; 86140

== ENCOUNTER → 2021-05-09 11:14 | Outpatient (CLI) | payer MEDICARE, SELFPAY ==
[2021-05-09 15:08] LABS: Absolute Lymphocyte Count 1.06 X10^3/uL (0.83-4.51); Absolute Neutrophil Count 4.4 X10^3/uL (2.0-7.7); Basophil# 0.05 X10^3/uL; Basophil% 0.8 % (0-1); Eosinophil# 0.15 X10^3/uL; Eosinophils% 2.4 % (0-5); Hemoglobin 14.2 g/dL (12.0-15.0); Lymphocyte # 1.06 X10^3/ul (0.83-4.51); Lymphocyte % 17.1 % (19-41); Mean Corp Hgb Conc 30.9 g/dL (32-36); Mean Corpuscular Hgb 25.9 pg (27.0-32.0); Mean Corpuscular Volume 83.8 fL (81-99); Mean Platelet Vol. 11.3 fl (6.2-12.0); Monocyte# 0.52 X10^3/uL; Monocyte% 8.4 % (0-10); NRBC Flagged by Analyzer 0 % (0-5); Neutrophil # 4.37 X10^3/uL (2.7-7.7); Neutrophil % 70.7 % (47-70); Platelet Count 241 K/mm3 (150-450); RBC Distribution Width CV 13.8 % (11.6-14.6); RBC Distribution Width SD 42.1 fl (35.1-43.9); Red Blood Count 5.49 M/mm3 (4.2-5.4); White Blood Count 6.2 K/mm3 (4.4-11.0)
[2021-05-09 15:24] LABS: Vitamin D,25 Hydroxy 27.5 ng/mL
[2021-05-09 15:35] LABS: Hemoglobin A1c 6.1 % (3.8-5.6)
[2021-05-09 15:36] LABS: Microalbumin,Random Urine 7.1 mg/L (NO RANGE EST.); Microalbumin:Creatinine Ratio 12.9 mg/g CRE (<30 mg/g CRE)
[2021-05-09 15:46] LABS: ALB/GLOB Ratio 0.9 RATIO (0.9-2.4); AST(SGOT) 30 U/L (15-37); Alanine Aminotransfer ALT/SGPT 39 U/L (13-56); Albumin, Serum 3.7 g/dL (3.2-5.0); Alkaline Phosphatase 96 U/L (45-117); Anion Gap 6 (5-15); BUN 25 mg/dL (7-18); Calcium,Total 9.3 mg/dL (8.5-10.1); Chloride 102 mmol/L (98-107); Cholesterol 213 mg/dL (200); Creatinine, Serum 1.04 mg/dL (0.55-1.02); EST Glomerular Filtration Rate 56 mL/min (>60); Est Glom Filt Rate - Afr Amer 68 mL/min (>60); Free T3 2.5 pg/mL (2.18-3.98); Glucose 95 mg/dL (74-106); High Density Lipoprotein 48 mg/dL; Potassium 4.3 mmol/L (3.5-5.1); Protein, Total 7.7 g/dL (6.4-8.2); Sodium Level 138 mmol/L (136-145); T4 Free Direct 1.07 ng/dL (0.76-1.46); Thyroid Stim Hormone (TSH) 2.49 uIU/mL (0.358-3.74); Triglycerides 110 mg/dL; Very Low Density Lipoprotein 22 mg/dL (5-40)
[2021-05-09 19:54] LABS: PTHIN 61.8 pg/mL (18.4-80.1)
== END ==
PROVIDERS: PCP Family Medicine; Visit Provider Family Medicine
DX: K52.81 Eosinophilic gastritis or gastroenteritis (principal); E03.9 Hypothyroidism, unspecified; E88.81 Metabolic syndrome and other insulin resistance; M81.0 Age-related osteoporosis without current pathological fracture; I10 Essential (primary) hypertension; R63.4 Abnormal weight loss
CPT/HCPCS: 36415; 80053; 80061; 82043; 82306; 82570; 83036; 83970; 84439; 84443; 84481; 85025

== ENCOUNTER → 2021-07-13 | Outpatient (CLI) | payer MEDICARE, SELFPAY | END | disposition home or self-care (01) | PROVIDERS: PCP Family Medicine; Referring Provider Family Medicine; Visit Provider Family Medicine | DX: U07.1 COVID-19 (principal) | CPT/HCPCS: 87635; U0005; U0003 ==

== ENCOUNTER 2021-07-15 17:32 | Outpatient (CLI) | payer MEDICARE, SELFPAY ==
[2021-07-15 17:36] VITALS: BP 149/78; PULSE 76; RESP 16; TEMP 36.8; O2SAT 100; BMI 40.0
[2021-07-15] MEDS: 0.9% Saline Lock 10 ML Syringe IV (17:36)
[2021-07-15 19:20] VITALS: BP 160/72; PULSE 65; RESP 16; TEMP 36.4; O2SAT 100
== END 2021-07-15 19:24 | disposition home or self-care (01) ==
LOC: MS3OUT 17:32 → MS3 17:33
PROVIDERS: PCP Family Medicine; Referring Provider Nurse Practitioner Adult Health; Visit Provider Nurse Practitioner Adult Health
DX: Z23 Encounter for immunization (principal); U07.1 COVID-19
CPT/HCPCS: J7050; M0245; Q0245; A4216

== ENCOUNTER 2021-11-07 10:40 | Outpatient (CLI) | payer MEDICARE, SELFPAY ==
[2021-11-07 12:25] LABS: Absolute Lymphocyte Count 1.12 X10^3/uL (0.83-4.51); Basophil# 0.04 X10^3/uL; Basophil% 0.7 % (0-1); Eosinophil# 0.18 X10^3/uL; Hematocrit 43.3 % (37-47); Hemoglobin 13.3 g/dL (12.0-15.0); Lymphocyte # 1.12 X10^3/ul (0.83-4.51); Lymphocyte % 18.8 % (19-41); Mean Corp Hgb Conc 30.7 g/dL (32-36); Mean Corpuscular Hgb 25.8 pg (27.0-32.0); Mean Corpuscular Volume 84.1 fL (81-99); Mean Platelet Vol. 11.6 fl (6.2-12.0); Monocyte% 10.1 % (0-10); NRBC Flagged by Analyzer 0 % (0-5); Neutrophil # 3.98 X10^3/uL (2.7-7.7); Neutrophil % 66.9 % (47-70); Platelet Count 225 K/mm3 (150-450); RBC Distribution Width CV 13.7 % (11.6-14.6); RBC Distribution Width SD 42.5 fl (35.1-43.9); Red Blood Count 5.15 M/mm3 (4.2-5.4)
[2021-11-07 12:48] LABS: AST(SGOT) 24 U/L (15-37); Alanine Aminotransfer ALT/SGPT 32 U/L (13-56); Albumin, Serum 3.8 g/dL (3.2-5.0); Alkaline Phosphatase 111 U/L (45-117); Anion Gap 6 (5-15); BUN 17 mg/dL (7-18); BUN/Creat Ratio 14.2 RATIO (10-20); Calcium,Total 8.9 mg/dL (8.5-10.1); Chloride 103 mmol/L (98-107); Cholesterol 125 mg/dL (200); EST Glomerular Filtration Rate 48 mL/min (>60); Est Glom Filt Rate - Afr Amer 58 mL/min (>60); Ferritin 176 ng/mL (8-252); Globulin 3.7 g/dL (2.2-4.2); Glucose 102 mg/dL (74-106); High Density Lipoprotein 46 mg/dL; Magnesium 2.3 mg/dL (1.6-2.6); Potassium 4.1 mmol/L (3.5-5.1); Protein, Total 7.5 g/dL (6.4-8.2); Sodium Level 138 mmol/L (136-145); Thyroid Stim Hormone (TSH) 1.43 uIU/mL (0.358-3.74); Triglycerides 97 mg/dL; Very Low Density Lipoprotein 19 mg/dL (5-40)
[2021-11-07 12:49] LABS: Hemoglobin A1c 6.3 % (3.8-5.6)
[2021-11-07 13:19] LABS: Microalbumin,Random Urine 6.6 mg/L (NO RANGE EST.); Microalbumin:Creatinine Ratio 7.1 mg/g CRE (<30 mg/g CRE)
== END 2021-11-07 23:59 | disposition home or self-care (01) ==
PROVIDERS: PCP Family Medicine; Visit Provider Family Medicine
DX: E88.81 Metabolic syndrome and other insulin resistance (principal); E66.01 Morbid (severe) obesity due to excess calories; I10 Essential (primary) hypertension; Z68.38 Body mass index [BMI] 38.0-38.9, adult; K52.81 Eosinophilic gastritis or gastroenteritis; R25.2 Cramp and spasm; E78.5 Hyperlipidemia, unspecified
CPT/HCPCS: 36415; 80053; 80061; 82043; 82570; 82728; 83036; 83735; 84443; 85025

== ENCOUNTER 2021-11-25 08:32 | Outpatient (CLI) | payer MEDICARE, SELFPAY ==
--- NOTE | 2021-11-25 08:36 | ART_ITS ---
Reason For Study: Cramp in lower leg Procedure A bilateral lower extremity continuous wave Doppler with analog waveform analysis and ankle brachial indexes. Left Segmental Pressures Left brachial= 140mmHg. Left posterior tibial artery = 180mmHg. Left dorsalis pedis artery = 171mmHg. Left digit = 126 mmHg. Right Segmental Pressures Right brachial= 143mmHg. Right posterior tibial artery = 187mmHg. Right dorsalis pedis artery = 170mmHg. Right digit = 119 mmHg. Indices The right ankle brachial index by the posterior tibial artery is 1.31. The right ankle brachial index by the dorsalis pedis is 1.19. The right digital-brachial index is 0.83. The left ankle brachial index by the posterior tibial artery is 1.26. The left ankle brachial index by the dorsalis pedis is 1.20. The left digital-brachial index is 0.88. VL/Ankle Brachial Index Interpretation Summary Triphasic Doppler waveforms are noted at ankle level bilaterally. Pulse-volume recordings appear satisfactory at ankle and digital levels bilaterally. Resting ankle-brachial in dices are normal bilaterally. Digital-brachial indices are normal bilaterally. There is no evidence of significant arterial occlusive disease in the lower ext remities bilaterally. Ordering Physician: Jake Carter Referring Physician: Jake Carter Performed By: Yessenia Caicedo RDCS/RVT
== END 2021-11-25 23:59 | disposition home or self-care (01) ==
PROVIDERS: PCP Family Medicine; Referring Provider Family Medicine; Visit Provider Family Medicine
DX: R25.2 Cramp and spasm (principal); E66.01 Morbid (severe) obesity due to excess calories; I10 Essential (primary) hypertension; E78.5 Hyperlipidemia, unspecified; Z68.38 Body mass index [BMI] 38.0-38.9, adult; E88.81 Metabolic syndrome and other insulin resistance; R09.89 Other specified symptoms and signs involving the circulatory and respiratory systems
CPT/HCPCS: 93922

== ENCOUNTER → 2022-03-27 | Outpatient (CLI) | payer MEDICARE, SELFPAY | END | disposition home or self-care (01) | LOC: PSN 08:54 | PROVIDERS: PCP Family Medicine; Referring Provider Internal Medicine Gastroenterology; Visit Provider Internal Medicine Gastroenterology | DX: U07.1 COVID-19 (principal) | CPT/HCPCS: 87635; C9803; U0003; U0005 ==

== ENCOUNTER → 2022-06-01 | Outpatient (CLI) | payer MEDICARE, SELFPAY ==
--- NOTE | 2022-06-01 07:51 | MRI_ITS ---
EXAM: MR LEFT LOWER EXTREMITY WITHOUT INTRAVENOUS CONTRAST, FOOT CLINICAL INDICATION: PAIN IN JOINTS OF ANKLE AND FOOT TECHNIQUE: Multiplanar and multisequence MR images of the left foot without intravenous contrast. This report was created using [employer] report [employer] technology. COMPARISON: None. FINDINGS: Ankle tendons are intact. Ankle ligaments are intact. Prominent plantar and posterior calcaneus enthesophytes. Cystic changes at the lateral talar process and the adjacent anterior aspect of the calcaneus. This could be degenerative or traumatic in nature but is not acute. There is nonorganized fluid in the soft tissues immediately lateral to the talar head/neck. No significant tibiotalar joint effusion. No other masses or fluid collections. Significant muscle atrophy along the lateral aspect of foot. MRI/Lower Ext/No Jt/w/o IMPRESSION: Cystic changes at the lateral talar process and the adjacent anterior aspect of the calcaneus. This could be degenerative or traumatic in nature but is not acute. Nonorganized fluid involving the soft tissues immediately lateral to the talar head/neck. Electronically Signed: Benjamin Mireles MD at 3:42 EDT ,
== END | disposition home or self-care (01) ==
LOC: MRI 07:34
PROVIDERS: PCP Family Medicine; Referring Provider Orthopaedic Surgery; Visit Provider Orthopaedic Surgery
DX: M25.572 Pain in left ankle and joints of left foot (principal)
CPT/HCPCS: 73718

== ENCOUNTER 2023-01-22 09:03 | Emergency (ER) | payer MEDICARE, SELFPAY ==
[2023-01-22 09:04] VITALS: BP 152/74; PULSE 78; RESP 16; TEMP 36.4; O2SAT 98; BMI 42.0
[2023-01-22 09:15] VITALS: BP 145/79; PULSE 72; RESP 18; O2SAT 96; O2SAT 98
--- NOTE | 2023-01-22 09:15 | RAD_ITS ---
STUDY: X-RAY CHEST REASON FOR EXAM: Female, 67 years old. Chest pain TECHNIQUE: Single AP portable view of the chest. COMPARISON: Comparison is made with prior study dated August 18, 2020. FINDINGS: EKG electrodes are seen. The lungs are clear and expanded. There is no demonstrated pleural abnormality. Normal size heart. Normal mediastinum and nubia. Normal visualized pulmonary arteries. There is atherosclerotic tortuosity of the aortic arch and descending thoracic aorta. Normal visualized thoracic spine. Normal visualized ribs, clavicles, and shoulders. There is no demonstrated abnormality of the visualized soft tissue structures of the upper abdomen. RAD/Chest 1 View (Portable) IMPRESSION: No acute abnormality is seen. Electronically Signed: Natalio Edouard MD at 9:54 EDT ,
--- NOTE | 2023-01-22 09:15 | EKG12_ITS ---
Test Reason : SOB Blood Pressure : / mmHG Vent. Rate : 071 BPM Atrial Rate : 071 BPM P-R Int : 154 ms QRS Dur : 088 ms QT Int : 400 ms P-R-T Axes : 016 022 056 degrees QTc Int : 434 ms Normal sinus rhythm Normal ECG Confirmed by DAVID RUBIO, CHRIS ([id number]), social media editor ASHLEY BARRON ([id number]) on 01/24/2023 12:17:53 PM Referred By: Confirmed By:CHRIS HERNANDEZ MD
--- NOTE | 2023-01-22 09:17 | EDS_ITS ---
HPI History of Present Illness Chief Complaint: Asthma Narrative Narrative: 67-year-old female past medical history of asthma, has never been intubated or admitted for breathing problems, presents with increasing shortness of breath and dyspnea on exertion since Sunday, 3 days ago. She also describes chest tightness. She denies any nausea or vomiting that accompanies this. No fevers or chills, no cough, she denies any recent weight gain or leg swelling. She has been using her albuterol inhaler without relief. Her operating system designer is Dr. Solano, and her primary care provider is Dr. Jake Carter. She states that she has not been on prednisone for quite some time regarding her breathing difficulty. She states that when she walks or when she mops the floor, she becomes very short of breath. [facility] Medical History (Updated 01/22/23 @ 10:58 by Naveen Paige MD) Asthma GERD (gastroesophageal reflux disease) H/O malignant neoplasm of thyroid Hypothyroidism SOB (shortness of breath) Home Medications levothyroxine 88 mcg tablet 88 mcg PO DAILY 03/18/18 [History Last Taken Unknown] liothyronine 5 mcg tablet 5 mcg PO DAILY 03/18/18 [History Last Taken Unknown] albuterol sulfate 90 mcg/actuation aerosol inhaler (ProAir HFA) 2 puff inhalation Q6H PRN Shortness Of Breath 09/06/20 [History Last Taken Unknown] calcium carbonate 600 mg calcium (1,500 mg) tablet (Calcium) 600 mg PO DAILY 09/06/20 [History Last Taken Unknown] cholecalciferol (vitamin D3) 1,250 mcg (50,000 unit) capsule 1,250 mcg PO QWEEK 09/06/20 [History Last Taken Unknown] cholecalciferol (vitamin D3) 25 mcg (1,000 unit) capsule 25 mcg PO DAILY 09/06/20 [History Last Taken Unknown] irbesartan 75 mg tablet 75 mg PO DAILY 09/06/20 [History Last Taken Unknown] nitroglycerin 0.4 mg sublingual tablet 0.4 mg sublingual Q5M PRN Chest Pain 09/06/20 [History Last Taken Unknown] omeprazole magnesium 20 mg tablet,delayed release (Prilosec OTC) 20 mg PO DAILY 09/06/20 [History Last Taken Unknown] fluticasone propionate 50 mcg/actuation nasal spray,suspension 2 spray intranasal DAILY #16 grams 09/17/20 [Rx Last Taken Unknown] montelukast 10 mg tablet 10 mg PO QPM #30 tabs 09/17/20 [Rx Last Taken Unknown] albuterol sulfate 90 mcg/actuation aerosol inhaler (Ventolin HFA) 1 - 2 puff inhalation Q4H PRN PRN Wheezing #1 ea 01/22/23 [Rx Last Taken Unknown] prednisone 20 mg tablet 40 mg PO DAILY #14 tabs 01/22/23 [Rx Last Taken Unknown] Allergy/AdvReac Type Severity Reaction Status Date / Time fenoldopam Allergy Intermediate unknown Verified 01/22/23 09:06 formoterol [From Dulera] Allergy Intermediate unknown Verified 01/22/23 09:06 lorazepam [From Ativan] Allergy Intermediate unknown Verified 01/22/23 09:06 mometasone furoate Allergy Intermediate unknown Verified 01/22/23 09:06 [From Dulera] amoxicillin Allergy Unknown Verified 01/22/23 09:06 cobalt Allergy NEEDS Verified 01/22/23 09:06 FOLLOW-UP formaldehyde Allergy Unknown Verified 01/22/23 09:06 latex Allergy Unknown Verified 01/22/23 09:06 nickel Allergy Unknown Verified 01/22/23 09:06 procaine [From Novocain] Allergy Unknown Verified 01/22/23 09:06 rubber, unspecified Allergy NEEDS Verified 01/22/23 09:06 FOLLOW-UP thiopental [From Pentothal] Allergy NEEDS Verified 01/22/23 09:06 FOLLOW-UP Family History Sister Thyroid disorder Uncle CVA (cerebral vascular accident) Colon cancer Father Parkinsons disease Heart disease Grandfather Pancreatic cancer Brother Respiratory disease Mother Colon cancer Surgical History H/O eye surgery H/O: hysterectomy Hx of appendectomy Social History Smoking Status: Former smoker quit date: 08/13/69 ROS ROS ED ROS Narrative Constitutional: No fever, no chills. HEENT: No sore throat. No neck pain. No loss of vision. No rhinorrhea. Cardiovascular: Positive chest tightness/chest pain. No palpitations. No pedal edema. Respiratory: No cough, positive dyspnea on exertion and shortness of breath. Abdominal: No abdominal pain. No nausea. No vomiting. Genitourinary: No dysuria. No hematuria. Musculoskeletal: No myalgias. No arthralgias. Neurologic: No headaches. No dizziness. No lightheadedness. Skin: No rash. No change in color. Psychiatric: No depression. No anxiety. EXAM Physical Exam Narrative Exam Narrative: Afebrile. Vital signs noted. HEENT: Normocephalic. Atraumatic. PERRL, EOMI. Neck soft and supple. No point tenderness or step off. Cardiovascular: Regular rate and rhythm. No murmurs, rubs, or gallops appreciated. Respiratory: No tachypnea. Diminished breath sounds bilateral bases. Gastrointestinal: Abdomen soft, nontender, with normoactive bowel sounds. No rebound or guarding. Neurological: Awake. Alert. Nonfocal, nonlateralizing. Skin: No rash. Normal color. No pallor. Musculoskeletal: No pedal edema. Full range of motion extremities. Const Vital Signs: 01/22/23 09:04 01/22/23 09:15 01/22/23 09:15 Temperature 97.6 F L Temperature Source Temporal Pulse Rate 78 72 Respiratory Rate 16 18 Blood Pressure 152/74 H 145/79 H Blood Pressure Mean 100 101 Pulse Ox 98 96 98 Oxygen Delivery Method Room Air Room Air Room Air 01/22/23 09:31 01/22/23 11:03 Temperature Temperature Source Pulse Rate 69 68 Respiratory Rate 18 18 Blood Pressure 131/71 H Blood Pressure Mean 91 Pulse Ox 97 Oxygen Delivery Method Room Air MDM MDM MDM Narrative Medical decision making narrative: In the differential diagnosis is asthma exacerbation versus undiagnosed COPD/CHF. Lower on the differential diagnosis is pneumothorax and acute coronary syndrome. Pneumonia is less likely because she denies any fever or cough productive of sputum consistent with infectious process. Comprehensive work-up will be pursued. She will be given an ipratropium treatment/albuterol aerosolized treatment along with an initial steroid loading dose of 60 mg orally. I will obtain a chest x-ray to rule out pneumothorax and pneumonia. EKG will be obtained to rule out ACS or ischemia along with troponins. I will make sure she is not anemic by obtaining a CBC. BNP will be obtained to help rule out CHF. However, there is no evidence of fluid overload on her physical exam. I reviewed the patient's laboratory work and she has normal white count of 5.9, hemoglobin normal at 14.1, hematocrit normal at 45.0, platelet count normal at 221. Sodium slightly low at 135 which I think is nonspecific as this is just below normal range. BUN slightly elevated at 19 with creatinine at 1.20. This is her baseline for chronic kidney injury. While glucose is elevated at 137, she has a normal anion gap of 5 and I do not feel that she is in diabetic ketoacidosis. Chest x-ray interpreted by myself independently in 1 view shows no evidence of pneumonia or pneumothorax. I reviewed the radiology report which confirms my independent interpretation. BNP was reviewed and is normal at 11.5, initial high-sensitivity troponin is 8. EKG was obtained and interpreted by myself as normal sinus rhythm at 71 bpm without ectopy or acute ST changes. No STEMI. Upon repeat examination at approximately 10:55 AM, she is resting comfortably and states she feels improved. She has normal pulse ox currently. I will repeat her 2-hour troponin and have her ambulate. I wrote her a prescription for steroid burst for the next 7 days, and for a new albuterol MDI rescue inhaler. I do feel that she would be able to follow-up with her operating system designer, Dr. Yonatan Solano. In checking her second troponin, it is normal at 5 for a delta of 0. Disposition is discharged home in stable condition. History & Record Review Discussion w/independent historian: Patient Additional record(s) reviewed:: Prior ED visit Lab Data Attestation: I reviewed the patient's lab results. Labs: Laboratory Results - last 24 hr 01/22/23 01/22/23 01/22/23 09:31 09:31 09:31 WBC 5.9 RBC 5.48 H Hgb 14.1 Hct 45.0 MCV 82.1 MCH 25.7 L MCHC 31.3 L RDW Std Deviation 42.0 RDW Coeff of Warren 14.0 Plt Count 229 MPV 10.8 Immature Gran % (Auto) 0.300 Neut % (Auto) 71.2 H Lymph % (Auto) 15.9 L Kings % (Auto) 9.1 Eos % (Auto) 2.7 Baso % (Auto) 0.8 Absolute Neuts (auto) 4.2 Absolute Lymphs (auto) 0.94 Nucleated RBC % 0 Sodium 135 L Potassium 5.1 Chloride 102 Carbon Dioxide 28.0 Anion Gap 5 BUN 19 H Creatinine 1.20 H Estim Creat Clear Calc 38.21 Est GFR (MDRD) Af Amer 57 L Est GFR (MDRD) Non-Af 47 L BUN/Creatinine Ratio 15.8 Glucose 137 H Calcium 9.0 Total Bilirubin 1.00 AST 60 H ALT 71 H Alkaline Phosphatase 143 H Troponin I High Sens 5 B-Natriuretic Peptide 11.5 Total Protein 7.6 Albumin 3.6 Globulin 4.0 Albumin/Globulin Ratio 0.9 01/22/23 12:10 WBC RBC Hgb Hct MCV MCH MCHC RDW Std Deviation RDW Coeff of Warren Plt Count MPV Immature Gran % (Auto) Neut % (Auto) Lymph % (Auto) Kings % (Auto) Eos % (Auto) Baso % (Auto) Absolute Neuts (auto) Absolute Lymphs (auto) Nucleated RBC % Sodium Potassium Chloride Carbon Dioxide Anion Gap BUN Creatinine Estim Creat Clear Calc Est GFR (MDRD) Af Amer Est GFR (MDRD) Non-Af BUN/Creatinine Ratio Glucose Calcium Total Bilirubin AST ALT Alkaline Phosphatase Troponin I High Sens 5 B-Natriuretic Peptide Total Protein Albumin Globulin Albumin/Globulin Ratio Radiography Diagnostic Testing: Clinical Impression(s) from Imaging Studies Chest X-Ray 01/22/23 09:15 IMPRESSION: No acute abnormality is seen. Electronically Signed: Natalio Edouard MD at 9:54 EDT Reading Location ID and State: [facility] / [place] , Service support , Discharge Plan Triage Chief Complaint: Asthma ED Provider: Naveen Paige Dx/Rx/DC Orders Clinical Impression: Asthma exacerbation, SOB (shortness of breath) Instructions: ED Asthma, Acute (Adult), ED Dyspnea Prescriptions: New albuterol sulfate [Ventolin HFA] 90 mcg/actuation HFA aerosol inhaler 1 - 2 puff inhalation Q4H PRN PRN (Reason: Wheezing) Qty: 1 0RF prednisone 20 mg tablet 40 mg PO DAILY Qty: 14 0RF No Action albuterol sulfate [ProAir HFA] 90 mcg/actuation HFA aerosol inhaler 2 puff INHALATION Q6H PRN (Reason: Shortness Of Breath) omeprazole magnesium [Prilosec OTC] 20 mg tablet,delayed release (DR/EC) 20 mg PO DAILY calcium carbonate [Calcium 600] 600 mg calcium (1,500 mg) tablet 600 mg PO DAILY cholecalciferol (vitamin D3) 25 mcg (1,000 unit) capsule 25 mcg PO DAILY cholecalciferol (vitamin D3) 1,250 mcg (50,000 unit) capsule 1,250 mcg PO QWEEK irbesartan 75 mg tablet 75 mg PO DAILY nitroglycerin 0.4 mg tablet, sublingual 0.4 mg SUBLINGUAL Q5M PRN (Reason: Chest Pain) Rx Instructions: do not exceed 3 doses per episode fluticasone propionate 50 mcg/actuation spray,suspension 2 spray INTRANASAL DAILY Qty: 16 3RF montelukast 10 mg tablet 10 mg PO QPM Qty: 30 3RF liothyronine 5 MCG tablet 5 mcg PO DAILY Label Comments: TAKE ONE TABLET BY MOUTH EVERY DAY levothyroxine 88 MCG tablet 88 mcg PO DAILY Primary Care Provider: Jake Carter Referrals: Yonatan Solano MD [Med Staff - Active Staff] - 3-5 Days if not improving Jake Carter MD [Primary Care Provider] - 3-5 Days if not improving Disposition Disposition: Home, Self Care
[2023-01-22 09:31] VITALS: PULSE 69; RESP 18
[2023-01-22] MEDS: Ipratropium/Albuterol Sulfate 3 ML AMPUL.NEB INHALATION (09:31)
[2023-01-22 09:37] LABS: Absolute Lymphocyte Count 0.94 X10^3/uL (0.83-4.51); Absolute Neutrophil Count 4.2 X10^3/uL (2.0-7.7); Basophil# 0.05 X10^3/uL; Basophil% 0.8 % (0-1); Eosinophil# 0.16 X10^3/uL; Eosinophils% 2.7 % (0-5); Hemoglobin 14.1 g/dL (12.0-15.0); Lymphocyte # 0.94 X10^3/ul (0.83-4.51); Lymphocyte % 15.9 % (19-41); Mean Corp Hgb Conc 31.3 g/dL (32-36); Mean Corpuscular Hgb 25.7 pg (27.0-32.0); Mean Corpuscular Volume 82.1 fL (81-99); Mean Platelet Vol. 10.8 fl (6.2-12.0); Monocyte# 0.54 X10^3/uL; Monocyte% 9.1 % (0-10); NRBC Flagged by Analyzer 0 % (0-5); Neutrophil # 4.21 X10^3/uL (2.7-7.7); Neutrophil % 71.2 % (47-70); Platelet Count 229 K/mm3 (150-450); Red Blood Count 5.48 M/mm3 (4.2-5.4); White Blood Count 5.9 K/mm3 (4.4-11.0)
[2023-01-22] MEDS: predniSONE 20 MG Tablet 60 MG PO (09:39)
[2023-01-22 09:58] LABS: ALB/GLOB Ratio 0.9 RATIO (0.9-2.4); AST(SGOT) 60 U/L (15-37); Alanine Aminotransfer ALT/SGPT 71 U/L (13-56); Albumin, Serum 3.6 g/dL (3.2-5.0); Alkaline Phosphatase 143 U/L (45-117); Anion Gap 5 (5-15); BUN 19 mg/dL (7-18); BUN/Creat Ratio 15.8 RATIO (10-20); Chloride 102 mmol/L (98-107); EST Glomerular Filtration Rate 47 mL/min (>60); Est Glom Filt Rate - Afr Amer 57 mL/min (>60); Estimated Creatinine Clearance 38.21 ml/min; Glucose 137 mg/dL (74-106); Potassium 5.1 mmol/L (3.5-5.1); Protein, Total 7.6 g/dL (6.4-8.2); Sodium Level 135 mmol/L (136-145); Troponin-I HS (w/2H Reflex) 5 pg/mL (3.0-54.0)
[2023-01-22 09:59] LABS: BNP,B-Type NATRIURETIC PEPTIDE 11.5 pg/mL (0-100)
[2023-01-22 10:00] VITALS: O2SAT 98
[2023-01-22 11:03] VITALS: BP 131/71; PULSE 68; RESP 18; O2SAT 97
[2023-01-22 11:35] LABS: Reflex Troponin-HS? (from REC) Y
[2023-01-22 12:39] LABS: Troponin-I HS 5 pg/mL (3.0-54.0)
[2023-01-22 12:46] VITALS: O2SAT 98
== END 2023-01-22 13:21 | disposition home or self-care (01) ==
PROVIDERS: Emergency Provider Emergency Medicine; PCP Family Medicine; Visit Provider Emergency Medicine
DX: J45.901 Unspecified asthma with (acute) exacerbation (principal); E03.9 Hypothyroidism, unspecified; K21.9 Gastro-esophageal reflux disease without esophagitis; Z79.890 Hormone replacement therapy; Z79.899 Other long term (current) drug therapy; Z87.891 Personal history of nicotine dependence
CPT/HCPCS: 71045; 80053; 83880; 84484; 85025; 93005; 94640; 99252; 99285; A4216; G0463

== ENCOUNTER → 2023-05-17 | Outpatient (CLI) | payer MEDICARE, SELFPAY | END | disposition home or self-care (01) | LOC: MFPLAB 09:29 | PROVIDERS: PCP Family Medicine; Visit Provider Family Medicine | DX: N30.91 Cystitis, unspecified with hematuria (principal) | CPT/HCPCS: 87086 ==

== ENCOUNTER → 2023-06-18 | Outpatient (CLI) | payer MEDICARE, SELFPAY ==
--- NOTE | 2023-06-18 15:50 | RAD_ITS ---
EXAM: XR LUMBOSACRAL SPINE, 2 OR 3 VIEWS CLINICAL INDICATION: SCREENING TECHNIQUE: Frontal and lateral views of the lumbar spine and sacrum. COMPARISON: No relevant prior studies available. FINDINGS: VERTEBRAE: Unremarkable. Preserved vertebral body height. No fracture. No spondylolisthesis. Preservation of the normal lumbar lordosis. No significant facet arthropathy. DISC SPACES: No acute findings. Disc spaces are maintained. GASTROINTESTINAL TRACT: Unremarkable as visualized. Included bowel gas pattern is non-obstructive. RAD/Lumbar Spine 2 or 3 Views IMPRESSION: No evidence of lumbar spinal fracture or spondylolisthesis. Electronically Signed: Terrance Christian MD at 16:29 EST ,
== END | disposition home or self-care (01) ==
LOC: MTRAD 15:49
PROVIDERS: PCP Family Medicine; Referring Provider Family Medicine; Visit Provider Family Medicine
DX: S39.012A Strain of muscle, fascia and tendon of lower back, initial encounter (principal)
CPT/HCPCS: 72100

== ENCOUNTER → 2023-09-10 | Outpatient (CLI) | payer MEDICARE, SELFPAY ==
--- OUTSIDE RECORDS SUMMARY | 2023-09-10 13:37 | XMS RPT_ITS | CCD ---
Author Name Unknown Address [address] [place] [address] Organization [facility] Care Team Providers Care It Investment/Portfolio Manager Name Role Phone FENG TRAVIS Unavailable Unavailable LONG SHEPARD Attending Unavailable TAWANNA HERNANDEZ Attending Unavailable TAYLOR WATTS Primary Care Unavailable Allergies Allergy Classification Reported Allergen(s) Allergy Type Date of Onset Reaction(s) Facility (2 sources) Formaldehyde; Translations: [FORMALDEHYDE] Drug Allergy 9 [facility] Repository (1 source) natural latex rubber; Translations: [LATEX, NATURAL RUBBER] Propensity to adverse reactions to drug (disorder) 9 [facility] Repository (1 source) Phenylalanine; Translations: [PHENYLALANINE] Drug Allergy 6 [facility] Repository (1 source) Procaine; Translations: [PROCAINE HCL] Drug Allergy 9 [facility] Repository (1 source) CHROMIUM AND DERIVATIVES; Translations: [CHROMIUM AND DERIVATIVES] Propensity to adverse reactions to drug (disorder) 9 [facility] Repository (2 sources) OTHER; Translations: [OTHER] Propensity to adverse reactions (disorder) 6 [facility] Repository (1 source) [id number]; Translations: [[id number]] Propensity to adverse reactions to drug (disorder) 1 [facility] Repository (1 source) RUBBER; Translations: [RUBBER] Propensity to adverse reactions (disorder) 9 [facility] Repository (1 source) Amoxicillin; Translations: [AMOXICILLIN] Drug Allergy 3 [facility] Repository (1 source) [place]; Translations: [COBALT] Drug Allergy 3 [facility] Repository (1 source) LORazepam; Translations: [LORAZEPAM] Drug Allergy 3 [facility] Repository (1 source) Procaine; Translations: [PROCAINE] Drug Allergy 3 [facility] Repository (1 source) MOMETASONE-FORMO TEROL; Translations: [MOMETASONE-FORM OTEROL] Propensity to adverse reactions to drug (disorder) 3 [facility] Repository (1 source) RUBBER, UNSPECIFIED; Translations: [RUBBER, UNSPECIFIED] Propensity to adverse reactions to drug (disorder) 3 [facility] Repository Problems Problem Classification Problem Date Documented Da te Episodic/Chronic Abdominal pain (2 sources) Unspecified abdominal pain; Translations: [Unspecified abdominal pain] Onset: 05-14-2023 Episodic Osteoarthritis (2 sources) Primary osteoarthritis, left ankle and foot; Translations: [Primary osteoarthritis, left ankle and foot] Onset: 07-28-2022 Chronic Other connective tissue disease (2 sources) Posterior tibial tendinitis, unspecified leg; Translations: [Posterior tibial tendinitis, unspecified leg] Onset: 07-28-2022 Episodic Urinary tract infections (2 sources) Cystitis, unspecified with hematuria; Translations: [Cystitis, unspecified with hematuria] Onset: 05-14-2023 Episodic Results Test Name Value Interpretation Reference Range Facil ity Encounters Encounter Date Encounter Type Care Provider Facility Start: 05-14-2023 End: 05-14-2023 Emergency department patient visit TAWANNA STROUD [facility] Start: 07-28-2022 End: 07-28-2022 ambulatory [facility] Start: 07-10-2018 End: 07-10-2018 Patient encounter procedure TRAVIS TONEY [facility] Payers Date Payer Category Payer Medicare [id number] 1955 Unknown [id number] Summary Purpose Family History No Family History Records FoundNo Family History Records FoundNo Family History Records Found Advance Directives No Advanced Directives Records FoundNo Advanced Directives Records FoundNo Advanced Directives Records Found Additional Source Comments INFORMATION SOURCE (unrecogn ized section and content) DATE CREATED AUTHOR AUTHOR'S ORGANIZ ATION 08/04/2022 [facility] DATE CREATED AUTHOR AUTHOR'S ORGANIZ ATION 05/22/2023 [facility] FOR RECORDS PERTAINING TO PATIENTS WHO ARE OR HAVE BEEN ENROLLED IN A CHEMICAL DEPENDENCY/SUBSTANCEABUSE PROGRAM, SOME INFORMATION MAY BE OMITTED. This clinical summary was aggregated from multiple sources. Caution should be exercised in using it in the provision of clinical care. This summary normalizes information from multiple sources, and as a consequence, information in this document may materially change the coding, format and clinical context of patient data. In addition, data may be omitted in some cases. CLINICAL DECISIONS SHOULD BE BASED ON THE PRIMARY CLINICAL RECORDS. [facility]. provides no warranty or guarantee of the accuracy or completeness of information in this document.
[2023-09-10 15:10] LABS: D-Dimer Quantitative (DVT/PE) 0.27 FEU/ug/m (0.27-0.49)
[2023-09-10 15:31] LABS: BNP,B-Type NATRIURETIC PEPTIDE 19.8 pg/mL (0-100)
[2023-09-10 15:43] LABS: AST(SGOT) 35 U/L (15-37); Alanine Aminotransfer ALT/SGPT 58 U/L (13-56); Albumin, Serum 3.8 g/dL (3.2-5.0); Alkaline Phosphatase 137 U/L (45-117); Anion Gap 7 (5-15); BUN 25 mg/dL (7-18); BUN/Creat Ratio 21.2 RATIO (10-20); CRP < 2.90 mg/L (0.0-3.0); CRP, High Sensitivity Cardiac 1.23 mg/L; Chloride 104 mmol/L (98-107); Creatinine, Serum 1.18 mg/dL (0.55-1.02); EST Glomerular Filtration Rate 48 mL/min (>60); Est Glom Filt Rate - Afr Amer 58 mL/min (>60); Free T3 1.6 pg/mL (2.18-3.98); Globulin 3.9 g/dL (2.2-4.2); Glucose 207 mg/dL (74-106); Potassium 3.8 mmol/L (3.5-5.1); Protein, Total 7.7 g/dL (6.4-8.2); Sodium Level 134 mmol/L (136-145); T4 Free Direct 1.12 ng/dL (0.76-1.46); T4 Total, Thyroxin 12.4 ug/dL (4.8-13.9)
[2023-09-10 17:36] LABS: Absolute Lymphocyte Count 1.21 X10^3/uL (0.83-4.51); Absolute Neutrophil Count 10.1 X10^3/uL (2.0-7.7); Basophil# 0.11 X10^3/uL; Basophil% 0.9 % (0-1); Eosinophils% 1.6 % (0-5); Hematocrit 47.1 % (37-47); Hemoglobin 14.7 g/dL (12.0-15.0); Lymphocyte # 1.21 X10^3/ul (0.83-4.51); Lymphocyte % 9.6 % (19-41); Mean Corp Hgb Conc 31.2 g/dL (32-36); Mean Corpuscular Hgb 25.6 pg (27.0-32.0); Mean Corpuscular Volume 82.1 fL (81-99); Mean Platelet Vol. 11.7 fl (6.2-12.0); Monocyte# 0.84 X10^3/uL; Monocyte% 6.7 % (0-10); NRBC Flagged by Analyzer 0 % (0-5); Neutrophil # 10.11 X10^3/uL (2.7-7.7); Neutrophil % 80.4 % (47-70); Platelet Count 272 K/mm3 (150-450); RBC Distribution Width CV 14.3 % (11.6-14.6); RBC Distribution Width SD 42.1 fl (35.1-43.9); Red Blood Count 5.74 M/mm3 (4.2-5.4); White Blood Count 12.6 K/mm3 (4.4-11.0)
[2023-09-10 17:57] LABS: Erythrocyte Sedimentation Rate 34 mm/hr (0-30)
[2023-09-12 16:10] LABS: EBV Acute VCA IgM < 36.0 U/mL (0.0-35.9); EBV Early Antigen IgG >150.0 U/mL (0.0-8.9); EBV Nuclear Antigen IgG > 600.0 U/mL (0.0-17.9); EBV-VCA IgG > 600.0 U/mL (0.0-17.9)
== END | disposition home or self-care (01) ==
PROVIDERS: PCP Family Medicine; Referring Provider Family Medicine; Visit Provider Family Medicine
DX: R53.83 Other fatigue (principal); I51.9 Heart disease, unspecified
CPT/HCPCS: 36415; 80053; 83880; 84436; 84439; 84481; 85025; 85379; 85652; 86140; 86141; 86663; 86664; 86665

== ENCOUNTER → 2023-10-16 | Outpatient (CLI) | payer MEDICARE, SELFPAY ==
--- OUTSIDE RECORDS SUMMARY | 2023-10-16 11:13 | XMS RPT_ITS | CCD ---
Author Name Unknown Address [address] [place] [address] Organization [facility] Care Team Providers Care Practical Nursing Instructor Name Role Phone FENG TRAVIS Unavailable Unavailable LONG SHEPARD Attending Unavailable TAWANNA HERNANDEZ Attending Unavailable TAYLOR WATTS Primary Care Unavailable Allergies Allergy Classification Reported Allergen(s) Allergy Type Date of Onset Reaction(s) Facility (2 sources) Formaldehyde; Translations: [FORMALDEHYDE] Drug Allergy 9 [facility] Repository (1 source) natural latex rubber; Translations: [LATEX, NATURAL RUBBER] Propensity to adverse reactions to drug (disorder) 9 [facility] Repository (1 source) Phenylalanine; Translations: [PHENYLALANINE] Drug Allergy 6 [facility] Repository (1 source) Procaine; Translations: [PROCAINE HCL] Drug Allergy 9 [facility] Repository (1 source) CHROMIUM AND DERIVATIVES; Translations: [CHROMIUM AND DERIVATIVES] Propensity to adverse reactions to drug (disorder) 9 [facility] Repository (2 sources) OTHER; Translations: [OTHER] Propensity to adverse reactions (disorder) 6 [facility] Repository (1 source) [id number]; Translations: [[id number]] Propensity to adverse reactions to drug (disorder) 1 [facility] Repository (1 source) RUBBER; Translations: [RUBBER] Propensity to adverse reactions (disorder) 9 [facility] Repository (1 source) Amoxicillin; Translations: [AMOXICILLIN] Drug Allergy 3 [facility] Repository (1 source) [place]; Translations: [COBALT] Drug Allergy 3 [facility] Repository (1 source) LORazepam; Translations: [LORAZEPAM] Drug Allergy 3 [facility] Repository (1 source) Procaine; Translations: [PROCAINE] Drug Allergy 3 [facility] Repository (1 source) MOMETASONE-FORMO TEROL; Translations: [MOMETASONE-FORM OTEROL] Propensity to adverse reactions to drug (disorder) 3 [facility] Repository (1 source) RUBBER, UNSPECIFIED; Translations: [RUBBER, UNSPECIFIED] Propensity to adverse reactions to drug (disorder) 3 [facility] Repository Problems Problem Classification Problem Date [...] 05-14-2023 Emergency department patient visit TAWANNA STROUD [facility] Start: 07-28-2022 End: 07-28-2022 ambulatory [facility] Start: 07-10-2018 End: 07-10-2018 Patient encounter procedure TRAVIS TONEY [facility] Payers Date Payer Category Payer Medicare [id number] 1955 Unknown [id number] Summary Purpose Family History No Family History Records FoundNo Family History Records FoundNo Family History Records Found Advance Directives No Advanced Directives Records FoundNo Advanced Directives Records FoundNo Advanced Directives Records Found Additional Source Comments INFORMATION SOURCE (unrecogn ized section and content) DATE CREATED AUTHOR AUTHOR'S ORGANIZ ATION 08/04/2022 [facility] DATE CREATED AUTHOR AUTHOR'S ORGANIZ [...] BE BASED ON THE PRIMARY CLINICAL RECORDS. [facility]. provides no warranty or guarantee of the accuracy or completeness of information in this document.
[2023-10-16 13:32] LABS: ALB/GLOB Ratio 1.1 RATIO (0.9-2.4); AST(SGOT) 36 U/L (15-37); Alanine Aminotransfer ALT/SGPT 43 U/L (13-56); Albumin, Serum 3.9 g/dL (3.2-5.0); Alkaline Phosphatase 115 U/L (45-117); Anion Gap 7 (5-15); BUN 15 mg/dL (7-18); BUN/Creat Ratio 13.8 RATIO (10-20); Calcium,Total 9.4 mg/dL (8.5-10.1); Chloride 104 mmol/L (98-107); Creatinine, Serum 1.09 mg/dL (0.55-1.02); EST Glomerular Filtration Rate 53 mL/min (>60); Est Glom Filt Rate - Afr Amer 64 mL/min (>60); Globulin 3.5 g/dL (2.2-4.2); Glucose 113 mg/dL (74-106); Potassium 4.2 mmol/L (3.5-5.1); Protein, Total 7.4 g/dL (6.4-8.2); Sodium Level 141 mmol/L (136-145); Thyroid Stim Hormone (TSH) 1.37 uIU/mL (0.358-3.74)
== END | disposition home or self-care (01) ==
LOC: MFPLAB 10:37
PROVIDERS: PCP Family Medicine; Visit Provider Family Medicine
DX: E03.9 Hypothyroidism, unspecified (principal); R79.89 Other specified abnormal findings of blood chemistry
CPT/HCPCS: 36415; 80053; 84443

== ENCOUNTER → 2023-12-18 | Outpatient (CLI) | payer MEDICARE, SELFPAY ==
--- NOTE | 2023-12-18 10:05 | BI_ITS ---
MAMMOGRAPHY - BILATERAL SCREENING REASON FOR EXAM: Female, 68 years old. Routine annual screening examination. PERTINENT HISTORY: Non-contributory. TECHNIQUE: Digital bilateral breast rosita (3D mammographic acquisition) in the CC and MLO projections. 2-D mediolateral oblique (MLO) and craniocaudad (CC) views of both breasts were obtained. CAD: Full Field Digital Mammography with Computer Added Detection was performed. COMPARISON: Comparison is made with prior study April 06, 2020 and May 18, 2016. FINDINGS: Breast Composition: The breasts are almost entirely fatty. There are no dominant masses or suspicious calcifications. Stable small benign-appearing bilateral axillary lymph nodes. No other significant abnormalities are identified. There has been no significant change since the prior study. BI/SCRN MAMM (CAD)W/ROSITA BILAT IMPRESSION: Stable bilateral screening mammogram. Yearly follow-up mammogram recommended. (A) ASSESSMENT CATEGORY: BIRADS Category 2: Benign. A letter regarding these results will be sent to the patient by the facility within 30 days. Approximately 10% of breast cancers are not detected by mammography. A normal mammogram should not delay biopsy of a clinically suspicious abnormality. [id number] Electronically Signed: Natalio Edouard MD at 13:21 EDT ,
--- NOTE | 2023-12-18 10:08 | BD_ITS ---
STUDY: DUAL ENERGY X-RAY ABSORPTIOMETRY / DXA REASON FOR EXAM: Female, 68 years old. [id number] TECHNIQUE: Bone Mineral Density (BMD) measurements of lumbar spine and bilateral hips were obtained. COMPARISON: Comparison is made with prior study April 06, 2020. FINDINGS: Lumbar Spine (L1-L4): g/cm2 (0.948) / T-score (-0.9) / Z-score (1.2) Findings are suggestive of normal bone density with a low fracture risk. Left Femur Total: g/cm2 (0.859) / T-score (-0.7) / Z-score (0.8) Left Femoral Neck: g/cm2 (0.523) / T-score (-2.9) / Z-score (-1.1) Right Femur Total: g/cm2 (0.879) / T-score (-0.5) / Z-score (1.0) Right Femoral Neck: g/cm2 (0.533) / T-score (-2.8) / Z-score (-1.1) The T-Scores on the most recent prior examination were: Lumbar Spine (L1-L4): There has been worsening of bone density since the previous examination. Left Femur Total: which represents an improvement of 15.2%. Right Femur Total: which represents a worsening of 1.8%. BD/Dexa Bone Density Study IMPRESSION: The patient is considered osteoporotic as outlined below according to World Josh Organization (WHO) criteria with a high fracture risk. There has been worsening of bone density since the previous examination. Reference Information: The T-score is the number of standard deviations above or below the standard which is normal for young adults at their peak bone mineral density. The World Health Organization (WHO) interprets the T-scores as follows: Above -1 Normal bone density Between -1 and -2.5 Osteopenia Equal to / or below -2.5 Osteoporosis As a practical clinical guideline, osteopenia may be graded as follows: Mild -1 through -1.5 Moderate -1.6 through -2.0 Severe -2.1 through -2.4 The Z-score is the number of standard deviations above or below age-matched controls. A Z-score of less than -1.5 would be considered abnormal. References: 1. NIH Osteoporosis and Related Bone Diseases www osteo.org 2. International Society for Clinical Densitometry www iscd.org 3. National Osteoporosis Foundation www nof.org Electronically Signed: Natalio Edouard MD at 13:03 EDT ,
== END | disposition home or self-care (01) ==
LOC: OPBD 09:59
PROVIDERS: PCP Family Medicine; Referring Provider Family Medicine; Visit Provider Family Medicine
DX: Z12.31 Encounter for screening mammogram for malignant neoplasm of breast (principal); M81.0 Age-related osteoporosis without current pathological fracture
CPT/HCPCS: 77063; 77067; 77080

== ENCOUNTER → 2024-07-04 | Outpatient (CLI) | payer MEDICARE, SELFPAY ==
[2024-07-04 16:31] LABS: ALB/GLOB Ratio 1.1 RATIO (0.9-2.4); AST(SGOT) 33 U/L (15-37); Alanine Aminotransfer ALT/SGPT 46 U/L (13-56); Albumin, Serum 3.9 g/dL (3.2-5.0); Alkaline Phosphatase 108 U/L (45-117); Anion Gap 7 (5-15); BUN 20 mg/dL (7-18); BUN/Creat Ratio 15.5 RATIO (10-20); Calcium,Total 9.2 mg/dL (8.5-10.1); Chloride 103 mmol/L (98-107); Creatinine, Serum 1.29 mg/dL (0.55-1.02); EST Glomerular Filtration Rate 43 mL/min (>60); Est Glom Filt Rate - Afr Amer 53 mL/min (>60); Globulin 3.7 g/dL (2.2-4.2); Glucose 106 mg/dL (74-106); Potassium 4.3 mmol/L (3.5-5.1); Protein, Total 7.6 g/dL (6.4-8.2); Sodium Level 137 mmol/L (136-145)
== END | disposition home or self-care (01) ==
LOC: MTLAB 12:48
PROVIDERS: PCP Family Medicine; Referring Provider Family Medicine; Visit Provider Family Medicine
DX: E03.9 Hypothyroidism, unspecified (principal); I10 Essential (primary) hypertension
CPT/HCPCS: 36415; 80053; 84443

== ENCOUNTER 2024-07-12 10:08 | Emergency (ER) | payer MEDICARE, SELFPAY ==
[2024-07-12 10:08] VITALS: BP 158/85; PULSE 90; RESP 16; TEMP 36.3; O2SAT 99
--- NOTE | 2024-07-12 10:35 | MRI_ITS ---
EXAM: MR LUMBAR SPINE WITHOUT INTRAVENOUS CONTRAST CLINICAL INDICATION: pain and right leg weakness X 2 WEEKS TECHNIQUE: Multiplanar and multisequence MR images of the lumbar spine without intravenous contrast. COMPARISON: Lumbar spine radiographs, 06/18/[address] abdomen and pelvis, 10/23/2016. FINDINGS: VERTEBRAE: Normal lumbar lordosis. Hemangiomas are identified throughout the lower thoracic and lumbar spine. No suspicious marrow space signal abnormality is identified. Multilevel endplate osteophytosis and facet arthrosis. No spondylolysis is evident. SPINAL CORD: No significant abnormality. Normal position and signal intensity of the conus medullaris. SOFT TISSUES: No significant abnormality. DISCS/SPINAL CANAL/NEURAL FORAMINA: L1-L2: Mild bilateral facet arthrosis. No disc herniation, spinal canal stenosis, or neural foraminal narrowing. L2-L3: Disc height loss and disc desiccation. Small right subarticular to foraminal disc herniation superimposed upon a disc bulge and mild bilateral facet arthrosis. Very mild spinal canal stenosis and right neural foraminal narrowing. L3-L4: Disc height loss and disc desiccation. Disc bulge and superimposed left subarticular disc herniation with extruded disc material ascending along the posterior cortex of the L3 vertebral body in the left ventral epidural space. Facet arthrosis contributes to mild spinal canal stenosis and mild left greater than right neural foraminal narrowing. No nerve root impingement. L4-L5: Disc bulge with superimposed right central to foraminal disc herniation with extruded material extending superiorly within the ventral epidural space approximately 1.3 cm above the inferior endplate of L4. Moderate to severe facet arthrosis contributes to mild to moderate spinal canal stenosis, moderate left neural foraminal narrowing, and moderate to severe right neural foraminal narrowing. Abutment without definite impingement of the traversing right L5 nerve root. Impingement of the right foraminal L4 nerve root. L5-S1: Disc bulge and moderate bilateral facet arthrosis. Severe right and mild left neural foraminal narrowing. No significant spinal canal stenosis. Impingement of the right L5 nerve root. MRI/Spine Lumbar (Routine) IMPRESSION: Multilevel degenerative changes. Findings are worst at L3-L4 through L5-S1. Right L4 and right L5 nerve root impingement. Correlate for associated symptoms. Consider spine surgery consultation. Electronically Signed: Po Lee DO at 12:35 EST ,
--- NOTE | 2024-07-12 10:39 | ED.VIS.BACK ---
HPI History of Present Illness Chief Complaint: Back Informant: patient Onset/Context/Timing Onset: Weeks Context: Gradual Onset Injury: lifting Timing: Continuous Quality: Sharp Location: Lumbar and Right Leg Current Severity: Moderate Maximum Severity: Moderate Worsened by: improves with Movement Relieved by: Nothing Associated Symptoms Associated Symptoms: Radiation to Right Leg; Negative for Fever, Unable to Ambulate, Unable to Transfer, Urinary Retention, Urinary Incontinence, Constipation or Fecal Incontinence Narrative Narrative: 68-year-old female complaining back pain rating to her right leg after lifting to 20 pounds turkeys about 2 weeks ago. Saw her primary care physician, Dr. Jake Carter, who placed her on Valium at night. Meloxicam and a prednisone taper. She said she has got no relief. She denies any bowel or bladder incontinence or retention. She is never had back surgery. She denies any fall or fever. Prior similar symptoms: No Recent Illness/Hospitalization: No PFSH [facility] Medical History SOB (shortness of breath) GERD (gastroesophageal reflux disease) Asthma H/O malignant neoplasm of thyroid Hypothyroidism Home Medications ?Medication ?Instructions ?Recorded ?Last Taken ?Type levothyroxine 88 mcg tablet 88 mcg PO DAILY 03/18/18 Unknown History liothyronine 5 mcg tablet 5 mcg PO DAILY 03/18/18 Unknown History albuterol sulfate 90 mcg/actuation 2 puff inhalation Q6H PRN 09/06/20 Unknown History aerosol inhaler (ProAir HFA) Shortness Of Breath calcium carbonate (Calcium 600) 600 mg PO DAILY 09/06/20 Unknown History cholecalciferol (vitamin D3) 1,250 1,250 mcg PO QWEEK 09/06/20 Unknown History mcg (50,000 unit) capsule cholecalciferol (vitamin D3) 25 25 mcg PO DAILY 09/06/20 Unknown History mcg (1,000 unit) capsule irbesartan 75 mg tablet 75 mg PO DAILY 09/06/20 Unknown History nitroglycerin 0.4 mg sublingual 0.4 mg sublingual Q5M PRN Chest 09/06/20 Unknown History tablet Pain omeprazole magnesium 20 mg 20 mg PO DAILY 09/06/20 Unknown History tablet,delayed release (Prilosec OTC) fluticasone propionate 50 2 spray intranasal DAILY #16 grams 09/17/20 Unknown Rx mcg/actuation nasal spray,suspension montelukast 10 mg tablet 10 mg PO QPM #30 tabs 09/17/20 Unknown Rx albuterol sulfate 90 mcg/actuation 1 - 2 puff inhalation Q4H PRN PRN 01/22/23 Unknown Rx aerosol inhaler (Ventolin HFA) Wheezing #1 ea diazepam 5 mg tablet 2.5 - 5 mg PO QHS muscle spasm 07/12/24 Unknown History metaxalone 800 mg tablet 800 mg PO TID 07/12/24 Unknown History Allergy/AdvReac Type Severity Reaction Status Date / Time fenoldopam Allergy Intermediate unknown Verified 07/12/24 10:12 formoterol (From Dulera) Allergy Intermediate unknown Verified 07/12/24 10:12 lorazepam (From Ativan) Allergy Intermediate unknown Verified 07/12/24 10:12 mometasone furoate (From Allergy Intermediate unknown Verified 07/12/24 10:12 Dulera) amoxicillin Allergy Unknown Verified 07/12/24 10:12 cobalt Allergy NEEDS Verified 07/12/24 10:12 FOLLOW-UP formaldehyde Allergy Unknown Verified 07/12/24 10:12 latex Allergy Unknown Verified 07/12/24 10:12 nickel Allergy Unknown Verified 07/12/24 10:12 procaine (From Novocain) Allergy Unknown Verified 07/12/24 10:12 rubber, unspecified Allergy NEEDS Verified 07/12/24 10:12 FOLLOW-UP thiopental (From Pentothal) Allergy NEEDS Verified 07/12/24 10:12 FOLLOW-UP Family History Sister Thyroid disorder Uncle CVA (cerebral vascular accident) Colon cancer Father Parkinsons disease Heart disease Grandfather Pancreatic cancer Brother Respiratory disease Mother Colon cancer Surgical History Hx of appendectomy H/O: hysterectomy H/O eye surgery Social History household members: spouse housing: house Smoking Status: Former smoker quit date: 08/13/69 ROS ROS ED ROS Narrative Back pain radiating to right leg. Weakness. Denies any bowel or bladder incontinence or retention. No fever. No fall or trauma. Constitutional Constitutional ED: Denies chills or fever(s) Eyes Eyes: Denies blurry vision ENT ENT ED: Denies ear pain Cardiovascular Cardiovascular: Denies chest pain Respiratory/Chest Respiratory/Chest: Denies dyspnea Gastrointestinal Gastrointestinal: Denies abdominal pain, constipation, diarrhea, melena, nausea or vomiting Genitourinary Genitourinary ED: Denies dysuria or hematuria Musculoskeletal Musculoskeletal: Reports back pain; Denies arthralgias Integumentary Denies abscess Neurologic Neurologic: Denies headache(s) Psychiatric Psychiatric: Denies anxiety or depression Endocrine Endocrinology: Denies cold intolerance Hematologic/Lymphatic Hematologic/Lymphatic: Denies easy bleeding or easy bruising Allergic/Immunologic Allergic/Immunologic ED: Denies mouth swelling, tongue swelling or urticaria EXAM Physical Exam Narrative Exam Narrative: 68-year-old female sitting upright in bed. Vital signs are stable afebrile. No distress. H EENT exam unremarkable. Pupils round reactive light. No facial droop. Normal speech. No trauma. Neck nontender. Lungs clear to auscultation bilaterally. Heart regular rhythm rate about 90 no murmur. Chest wall ribs nontender. Abdomen soft nontender. Back lumbar and right side paralumbar soft tissue tenderness. Positive straight leg raise on the right. Decreased dorsi and plantarflexion on the right. Unable to lift her right leg due to weakness. No atrophy. No saddle anesthesia or cauda equina. Weak dorsi and plantarflexion on the right very strong 5 out of 5 on the left. Can lift the left leg. Patient is awake and alert. Has weakness in the right leg. Const Vital Signs: 07/12/24 10:08 Temperature 97.4 F L Temperature Source Temporal Pulse Rate 90 Respiratory Rate 16 Blood Pressure 158/85 H Blood Pressure Mean 109 Pulse Ox 99 Oxygen Delivery Method Room Air Positive well nourished and well developed; Negative for cachectic, contractures or unkempt General Appearance ED: well developed and NAD; Negative for unkempt, cachectic, contractures or pallor Nutritional Appearance: Negative for cachectic HEENT Reports moist mucous membranes Negative for trauma or tenderness Eyes PERRL and EOMs intact bilaterally Neck no lymphadenopathy, supple and no JVD General: Negative for tenderness Resp normal respiratory effort and clear to auscultation bilaterally Cardio regular rate, regular rhythm, S1 normal heart sound, S2 normal heart sound and no murmurs GI normal to inspection, nondistended, normoactive bowel sounds, soft to palpation, non-tender, non-distended and no masses Palpation: Negative for tender, guarding, hepatomegaly or pulsatile mass Back/Spine normal to inspection; Negative for no thoracic nor lumbar tenderness Back/Spine Narrative: Lumbar and paralumbar soft tissue tenderness on the right. Cervical Spine: Negative for cervical spine tenderness Thoracic Spine / Upper Back: Negative for paraspinal muscle tenderness Lumbar Spine / Lower Back: straight leg raise positive right Extremity normal to inspection and no clubbing, cyanosis or edema Extremity Narrative: Right lower extremity weakness to both dorsi and plantarflexion. Unable to lift her leg off the bed. Neuro oriented x3 and no sensory deficits noted Sensorium / Orientation: alert; Negative for confused Motor Exam: strength abnormal; Negative for strength 5/5 throughout Psych mental status grossly normal Appearance: Negative for unkempt Attitude: No agitated Mood & Affect: Negative for depressed, sad or tearful Skin no rashes or lesions noted and no wounds General Skin Exam: Negative for jaundice or pallor Lesions: No lesion noted Rashes: No rashes noted Trauma: Negative for abrasion or puncture Wounds: Negative for wounds noted Image ED - Body Diagram Man: 1. Tenderness to lumbar spine and paralumbar soft tissue on the right. MDM MDM MDM Narrative Medical decision making narrative: 68-year-old female 2-week history of lower back pain radiating her right leg without relief using Valium, meloxicam and a prednisone taper. MRI being obtained. Morphine for pain. Half a milligram of Ativan due to her claustrophobia try to get the MRI done. Repeat exam at 12:20 PM patient doing well. She will be given additional nausea medication IV Zofran. Her pain is currently controlled. She has had her MRI we are awaiting the radiologist read of it. History & Record Review Discussion w/independent historian: Patient and Family Additional record(s) reviewed:: Prior inpatient record, Prior outpatient record and Prior ED visit Lab Data Attestation: I reviewed the patient's lab results. Discharge Plan Triage Chief Complaint: Back ED Provider: Yonathan De Leon Dx/Rx/DC Orders Prescriptions: No Action albuterol sulfate [ProAir HFA] 90 mcg/actuation HFA aerosol inhaler 2 puff INHALATION Q6H PRN (Reason: Shortness Of Breath) omeprazole magnesium [Prilosec OTC] 20 mg tablet,delayed release (DR/EC) 20 mg PO DAILY calcium carbonate [Calcium 600] 600 mg calcium (1,500 mg) tablet 600 mg PO DAILY cholecalciferol (vitamin D3) 25 mcg (1,000 unit) capsule 25 mcg PO DAILY cholecalciferol (vitamin D3) 1,250 mcg (50,000 unit) capsule 1,250 mcg PO QWEEK irbesartan 75 mg tablet 75 mg PO DAILY nitroglycerin 0.4 mg tablet, sublingual 0.4 mg SUBLINGUAL Q5M PRN (Reason: Chest Pain) Rx Instructions: do not exceed 3 doses per episode fluticasone propionate 50 mcg/actuation spray,suspension 2 spray INTRANASAL DAILY Qty: 16 3RF montelukast 10 mg tablet 10 mg PO QPM Qty: 30 3RF liothyronine 5 MCG tablet 5 mcg PO DAILY Patient Comments: TAKE ONE TABLET BY MOUTH EVERY DAY levothyroxine 88 MCG tablet 88 mcg PO DAILY albuterol sulfate [Ventolin HFA] 90 mcg/actuation HFA aerosol inhaler 1 - 2 puff inhalation Q4H PRN PRN (Reason: Wheezing) Qty: 1 0RF diazepam 5 mg tablet 2.5 - 5 mg PO QHS metaxalone 800 mg tablet 800 mg PO TID Primary Care Provider: Jake Carter Referrals: Jake Carter MD [Primary Care Provider] - Print Language: Irish
[2024-07-12] MEDS: morphine 8 MG/ML Syringe 6 MG IV (10:43)
[2024-07-12] MEDS: Ondansetron 4 MG/2 ML Vial IV ×2 (10:43→12:26)
[2024-07-12] MEDS: LORazepam 2 MG/ML Syringe 0.5 MG IV (10:46)
[2024-07-12 14:15] VITALS: BP 140/67; PULSE 65; RESP 15; O2SAT 93
[2024-07-12 14:35] VITALS: BMI 41.1
[2024-07-12 14:49] VITALS: BP 140/67; PULSE 65; RESP 15; TEMP 36.3; O2SAT 93
== END 2024-07-12 15:50 | disposition short-term general hospital (02) ==
LOC: ED 11:04
PROVIDERS: Emergency Provider Emergency Medicine; PCP Family Medicine; Visit Provider Emergency Medicine
DX: M54.50 Low back pain, unspecified (principal); J45.909 Unspecified asthma, uncomplicated; K21.9 Gastro-esophageal reflux disease without esophagitis; E03.9 Hypothyroidism, unspecified; Z79.890 Hormone replacement therapy; Z79.899 Other long term (current) drug therapy; Z87.891 Personal history of nicotine dependence
CPT/HCPCS: 72148; 96374; 96375; 96376; 99283; A4216; J2405

== ENCOUNTER → 2024-08-08 | Outpatient (CLI) | payer MEDICARE, SELFPAY ==
[2024-08-08 12:13] LABS: Absolute Neutrophil Count 3.6 X10^3/uL (2.0-7.7); Basophil# 0.03 X10^3/uL; Basophil% 0.6 % (0-1); Eosinophil# 0.11 X10^3/uL; Eosinophils% 2.1 % (0-5); Hematocrit 43.3 % (37-47); Hemoglobin 13.4 g/dL (12.0-15.0); Lymphocyte % 18.8 % (19-41); Mean Corp Hgb Conc 30.9 g/dL (32-36); Mean Corpuscular Hgb 25.2 pg (27.0-32.0); Mean Corpuscular Volume 81.5 fL (81-99); Mean Platelet Vol. 11.4 fl (6.2-12.0); Monocyte% 9.4 % (0-10); NRBC Flagged by Analyzer 0 % (0-5); Neutrophil % 67.8 % (47-70); Platelet Count 170 K/mm3 (150-450); RBC Distribution Width CV 14.7 % (11.6-14.6); RBC Distribution Width SD 43.4 fl (35.1-43.9); Red Blood Count 5.31 M/mm3 (4.2-5.4); White Blood Count 5.3 K/mm3 (4.4-11.0)
[2024-08-08 12:23] LABS: D-Dimer Quantitative (DVT/PE) 0.37 FEU/ug/m (0.27-0.49)
[2024-08-08 12:44] LABS: AST(SGOT) 24 U/L (15-37); Alanine Aminotransfer ALT/SGPT 54 U/L (13-56); Albumin, Serum 3.4 g/dL (3.2-5.0); Alkaline Phosphatase 112 U/L (45-117); Anion Gap 4 (5-15); BUN 13 mg/dL (7-18); BUN/Creat Ratio 11.9 RATIO (10-20); Calcium,Total 9.7 mg/dL (8.5-10.1); Chloride 100 mmol/L (98-107); Creatinine, Serum 1.09 mg/dL (0.55-1.02); EST Glomerular Filtration Rate 53 mL/min (>60); Est Glom Filt Rate - Afr Amer 64 mL/min (>60); Globulin 3.5 g/dL (2.2-4.2); Glucose 248 mg/dL (74-106); Potassium 4.2 mmol/L (3.5-5.1); Protein, Total 6.9 g/dL (6.4-8.2); Sodium Level 135 mmol/L (136-145)
== END | disposition home or self-care (01) ==
LOC: MFPLAB 09:31
PROVIDERS: PCP Family Medicine; Referring Provider Family Medicine; Visit Provider Family Medicine
DX: M79.661 Pain in right lower leg (principal)
CPT/HCPCS: 36415; 80053; 85025; 85379

== ENCOUNTER → 2025-07-20 | Outpatient (CLI) | payer MEDICARE, SELFPAY ==
[2025-07-20 12:38] LABS: Hematocrit 44.8 % (37-47); Hemoglobin 14.3 g/dL (12.0-15.0); Immature Granulocytes Count 0.020 X10^3/uL (0.0-0.0); Mean Corp Hgb Conc 31.9 g/dL (32-36); Mean Corpuscular Volume 81.0 fL (81-99); Mean Platelet Vol. 11.7 fl (6.2-12.0); NRBC Flagged by Analyzer 0 % (0-5); Platelet Count 262 K/mm3 (150-450); RBC Distribution Width CV 14.0 % (11.6-14.6); RBC Distribution Width SD 41.3 fl (35.1-43.9); Red Blood Count 5.53 M/mm3 (4.2-5.4); White Blood Count 6.3 K/mm3 (4.4-11.0)
[2025-07-20 12:56] LABS: PTHIN 57 pg/mL (11-61)
[2025-07-20 13:03] LABS: Creatinine, Urine (random) 252.00 mg/dL (28.00-217.00); Microalbumin,Random Urine < 12.0 mg/L (<20 mg/L)
[2025-07-20 13:08] LABS: AST(SGOT) 35 U/L (<=31); Alanine Aminotransfer ALT/SGPT 40 U/L (<=34); Albumin, Serum 4.4 g/dL (3.4-4.8); Alkaline Phosphatase 108 U/L (35-104); Anion Gap 12 (5-15); BUN 18 mg/dL (4-19); BUN/Creat Ratio 16.5 RATIO (10-20); CRP 3.21 mg/L (0.0-3.0); Calcium,Total 9.7 mg/dL (7.6-11.0); Carbon Dioxide 26.1 mmol/L (21.0-32.0); Chloride 102 mmol/L (98-108); Cholesterol 125 mg/dL (<=200); Globulin 3.1 g/dL (2.2-4.2); Glucose 130 mg/dL (70-99); Low Density Lipoprotein Calc. 56 mg/dL; Potassium 4.2 mmol/L (3.3-5.1); Triglycerides 165 mg/dL; Very Low Density Lipoprotein 33 mg/dL (5-40); cholesterol:hdl ratio screen 3.07
[2025-07-20 13:10] LABS: Ferritin 209 ng/mL (22-378); Free T3 2.9 pg/mL (2.18-3.98); Vitamin B12 454 pg/mL (180-914); Vitamin D,25 Hydroxy 30.0 ng/mL (30-100)
[2025-07-20 13:29] LABS: FOLATES,SERUM (FOLIC ACID) 13.00 ng/mL (4.60-34.80)
[2025-07-22 18:09] LABS: ANA- Smooth Homogeneous 1:640 (.)
== END | disposition home or self-care (01) ==
LOC: MFPLAB 10:09
PROVIDERS: PCP Family Medicine; Visit Provider Family Medicine
DX: K52.81 Eosinophilic gastritis or gastroenteritis (principal); R25.2 Cramp and spasm; J45.909 Unspecified asthma, uncomplicated; I51.9 Heart disease, unspecified; E03.9 Hypothyroidism, unspecified
CPT/HCPCS: 36415; 80053; 80061; 82043; 82306; 82570; 82607; 82728; 82746; 83036; 83970; 84439; 84443; 84481; 85025; 85652; 86038; 86140